=== PATIENT | male | born 1990 | race African-American/Black ===

== ENCOUNTER 2024-01-13 14:22 | Outpatient (AMB) | payer OTHER, SELFPAY ==
--- NOTE | 2024-01-13 14:43 | A.OFFPC_ITS ---
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 Will order labs. HTN: Pt has been taking his mother's hydrochlorothiazide. His blood pressure is stable on this, will prescribe this. Will have pt monitor his BP at home. Pt is morbidly obese. He is interested in weight loss. Will refer to bariatrics. Pt has a hx of severe ADAN. He has not had a sleep study in years, will refer for sleep study/titration study. 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 1. Little interest or pleasure in doing things: several days 2. Feeling down, depressed, or hopeless: several days 3. Trouble falling or staying asleep, or sleeping too much: nearly every day 4. Feeling tired or having little energy: nearly every day 5. Poor appetite or overeating: more than half the days 6. Feeling bad about yourself - or that you are a failure or have let yourself or your family down: several days 7. Trouble concentrating on things, such as reading the newspaper or watching television: not at all 8. Moving or speaking so slowly that other people could have noticed. Or the opposite - being so fidgety or restless that you have been moving around a lot more than usual: several days 9. Thoughts that you would be better off or of hurting yourself in some way: not at all Total score: 12 Depression Screening Interpretation: Positive (starting with a therapist in the near future. denies any si or hi) Depression Screening Follow-up: Existing condition and In treatment Depression Screening Done: Yes 65397 - PHQ-9 Billing: Yes Source: Developed by Drs. Primo Mcgraw, Earnestine Jose, Tarun Lloyd and colleagues, with an educational nilton from [employer].. Thrive Questionnaire Date Thrive assessed: 01/06/24 I am a: Patient What is your living situation today?: I have a steady place to live Within the past 12 months, did the food you bought not last and you didn't have the money to get more?: Never true Within the past 12 months, did you worry whether your food would run out before you got money to buy more?: Never true Do you have trouble paying for medicines?: No Do you have trouble getting transportation to medical appointments?: No Do you have trouble paying your heating and electricity bill?: Yes Do you have trouble taking care of your child, family member or friend?: No Do you have trouble with day-to-day activities such as bathing, preparing meals, shopping, managing finances, etc.?: Yes Are you currently unemployed and looking for a job?: No Are you interested in more education?: No Please select the resources that you would like help with: Housing/Assisted and Utilities Currently or been in a relationship where the following occur: No concerns reported THRIVE Score: 1 AUDIT C Alcohol Use Questionnaire (AUDIT-C) 1. How often do you have a drink containing alcohol?: Never 3. How often do you have six or more drinks on one occasion?: Never Total Score: 0 Score Reviewed/Action Taken: Yes ZAK-7 AMB Questionnaire ZAK-7 Date ZAK - 7 assessed: 01/13/24 Feeling nervous, anxious, or on edge: 2 = More than half the days Not being able to stop or control worryin = More than half the days Worrying too much about different things: 3 = Nearly every day Trouble relaxin = Nearly every day Being so restless that it is hard to sit still: 2 = More than half the days Becoming easily annoyed or irritable: 2 = More than half the days Feeling afraid as if something awful might happen: 1 = Several days Total ZAK-7 score (0-4 normal; 5-9 mild; 10-14 moderate; 15-21 severe): 15 Source: Developed by Drs. Primo Mcgraw, Earnestine Jose, Tarun Lloyd and colleagues, with an educational nilton from [employer] ZAK-7 Assessment Billing ZAK-7 Assessment Tool: ZAK-7 Assessment 65551 (starting therapy in the near future, denies any si or hi) Review of Systems Const Denies chills and Denies fever(s) Eyes Denies blurry vision ENT Denies vertigo, Denies dizziness and Denies sore throat Card Denies chest pain at rest, Denies chest pain with activity, Denies diaphoresis, Denies dyspnea and Denies dyspnea on exertion Resp Denies cough, Denies dyspnea, Denies dyspnea on exertion and Denies wheezing GI Denies abdominal pain, Denies melena, Denies hematochezia, Denies constipation, Denies diarrhea and Denies loose stools Denies hematuria Musc Denies numbness and Denies tingling Skin/Breast Denies lesions Neuro Denies vertigo, Denies dizziness, Denies numbness and Denies tingling Psych Denies anxiety, Denies depression, Denies homicidal ideation, Denies suicidal ideation and Denies other (substance abuse) Aller/Immun Denies wheezing Physical exam (Primary Care) Vital Signs: Last Vital Signs Pulse 82 01/13/24 14:47 BP 132/80 01/13/24 14:47 Pulse Ox 97 01/13/24 14:47 Oxygen Delivery Method Room Air 01/13/24 14:47 BMI result Body Mass Index 73.8 Tobacco/Smoking Status: Tobacco use Status Tobacco use date assessed 01/13/24 01/13/24 14:54 Patient Tobacco Use Status Never used Tobacco 01/13/24 14:54 e-Cigarette/Vaping Use Never Used 01/13/24 14:54 PHQ-9: PHQ-9 Score PHQ-9: Total score 12 01/13/24 14:54 Depression Screening Interpretation: Positive (starting with a therapist in the near future. denies any si or hi) Depression Screening Follow-up: Existing condition and In treatment Thrive Assessment: Date of Thrive Assessment Date Thrive assessed 01/06/24 01/13/24 14:54 Currently or been in a relationship where the following occur: No concerns reported Const General: cooperative Nutritional Appearance: obese morbidly obese Orientation/consciousness: patient oriented x3 HENMT Head: Yes normal to inspection, Yes normocephalic and Yes atraumatic Ears: TM's normal bilaterally Eyes General: appearance normal, both eyes and all related structures Alignment and Position: alignment normal and position normal Neck Neck: Yes normal visual inspection, Yes no lymphadenopathy and Yes supple Resp Effort & Inspection: normal respiratory effort Auscultation: diminished lung sounds ((due to body habitus)) Cardio Rate: regular rate Rhythm: regular rhythm Heart sounds: S1 normal heart sound present, S2 normal heart sound present and no murmurs GI Palpation (GI): Soft to palpation and nontender Auscultation: normal bowel sounds Male General Exam: Yes normal external exam Penis: normal penis Skin Other: inferior to large bilat breasts with singular scattered cystic lesions (small)/scarring along linear crease, no active cellulitis. Same noted to bilat axillary regions (HS) Neuro General: patient oriented x3, moves all extremities, no focal motor deficits and deep tendon reflexes 2+ bilaterally Romberg Test: Negative Extrem Other: dry discoloration to BLE Right lower extremity: edema Details: 1+ Left lower extremity: edema Details: 1+ Psych Appearance: grossly normal Mental Status: mental status grossly normal Speech and movement: Normal speech and movement present Affect: normal affect Attitude: cooperative Thought process: Normal thought process present Thought content: Normal thought content present Insight: Good insight present (Psych) Judgement: Good judgement present (Psych) Assessment and Plan Assessment & Plan (1) HTN (hypertension): Code(s): I10 - Essential (primary) hypertension Plan: Will send hydrochlorothiazide (already taking this) (2) Morbid obesity: Code(s): E66.01 - Morbid (severe) obesity due to excess calories Plan: Referred to bariatrics (3) Sleep apnea: Code(s): G47.30 - Sleep apnea, unspecified Plan: referring to sleep medicine (4) Hidradenitis suppurativa: Code(s): L73.2 - Hidradenitis suppurativa Plan: referring to derm Plan The patient agreed to the use of a medical van driver for this encounter. Scribed for SIN Crandall by Twyla De La Rosa medical van driver, on 01/13/2024 at 14:55 EST. Orders: Orders UA CC w/rflx Micro + Cult Today I10 - Essential (primary) hypertension Complete Blood Count Auto Diff Today I10 - Essential (primary) hypertension Comprehensive [place]. Panel Fast Today I10 - Essential (primary) hypertension TSH reflex Free T4 Today I10 - Essential (primary) hypertension Lipid Panel Today I10 - Essential (primary) hypertension Referrals Bariatric Surgery Referral E66.01 - Morbid (severe) obesity due to excess calories Sleep Medicine Referral E66.01 - Morbid (severe) obesity due to excess calories, G47.30 - Sleep apnea, unspecified Dermatology Referral L73.2 - Hidradenitis suppurativa Medications: New hydrochlorothiazide 25 mg PO DAILY 90 tabs 0RF Coding Level of Care Code New Pt Prev Care 18-39yr(85335 Diagnoses HTN (hypertension) I10 Morbid obesity E66.01 Sleep apnea G47.30 Hidradenitis suppurativa L73.2 Additional Codes ZAK-7 Assessment Billing - ZAK-7 Assessment Tool: ZAK-7 Assessment [id number] ([id number])
[2024-01-13 14:47] VITALS: BP 132/80; PULSE 82; O2SAT 97; BMI 73.8
== END 2024-01-13 15:48 | disposition home or self-care (01) ==
PROVIDERS: PCP Nurse Practitioner Family; Visit Provider Nurse Practitioner Family
DX: Z00.00 Encounter for general adult medical examination without abnormal findings (principal); E66.01 Morbid (severe) obesity due to excess calories; Z68.45 Body mass index [BMI] 70 or greater, adult; I10 Essential (primary) hypertension; G47.30 Sleep apnea, unspecified; L73.2 Hidradenitis suppurativa
CPT/HCPCS: 99385

== ENCOUNTER → 2024-01-19 07:58 | Outpatient (BNVA) | payer OTHER, SELFPAY | PROVIDERS: PCP Nurse Practitioner Family; Visit Provider Physician Assistant Surgical ==

== ENCOUNTER 2024-01-21 08:13 | Outpatient (REF) | payer OTHER, SELFPAY ==
[2024-01-21 10:25] LABS: MANUAL DIFF FLAG NO
[2024-01-21 10:35] LABS: Basophils Percent Auto 0.3 % (0-2); Eosinophils Absolute Auto 0.1 X10*3/uL (0.0-0.4); Eosinophils Percent Auto 1.1 % (0-4); Hematocrit 39.9 % (42.0-52.0); Imm Gran Abs Auto 0.03 X10*3/uL (0.00-0.03); Imm Gran Pct Auto 0.3 % (0.0-0.4); Lymphocytes Absolute Auto 2.7 X10*3/uL (1.2-4.9); Lymphocytes Percent Auto 29.5 % (20-40); Mean Corpuscular HGB Conc 32.6 g/dl (31.0-36.0); Mean Corpuscular Volume 85.8 fL (80.0-98.0); Mean Platelet Volume 9.5 fL (9.4-12.4); Monocytes Absolute Auto 0.4 X10*3/uL (0.1-1.2); Monocytes Percent Auto 4.7 % (2-11); Neutrophils Absolute Auto 5.9 x10*3/uL (2.0-8.3); Neutrophils Percent Auto 64.1 % (45-73); Platelet Count 312 X10*3/uL (160-400); Red Blood Count 4.65 X10*6/uL (4.60-5.80); Red Cell Distribution Width 14.1 % (11.0-16.0); White Blood Count 9.3 X10*3/uL (4.8-10.8)
[2024-01-21 10:41] LABS: Appearance Urine Clear; Color Urine Yellow; Glucose Urine UA Negative (Negative); Leukocyte Esterase Urine Negative (Negative); Nitrite Urine Negative (Negative); Specific Gravity - Urine 1.015 (1.005-1.025); UMIC TRIGGER UACC YES; Urine Blood Negative (Negative); Urine Ketones Negative (Negative); Urine Protein 30 (1+) mg/dL (Neg-Trace)
[2024-01-21 10:59] LABS: Bacteria Urine None Seen (None Seen); Hyaline Casts Urine 0-2 /LPF (0-2); RBC Urine 0-2 /HPF (0-2); Squamous Epithelial Cell Urine 0-2 /HPF (0-2); WBC Urine 0-5 /HPF (0-5)
[2024-01-21 11:01] LABS: Alanine Aminotransferase 16 U/L (0-40); Albumin Level 3.4 g/dL (3.5-5.0); Alkaline Phosphatase 71 U/L (39-117); Anion Gap 12 (12-20); Aspartate Amino Transferase 20 U/L (5-37); Bilirubin Total 0.5 mg/dL (0.0-1.0); Blood Urea Nitrogen 8 mg/dL (9-16); Carbon Dioxide 29 mmol/L (22-29); Chloride 101 mmol/L (96-108); Cholesterol 149 mg/dL (<200); Estimated Glomerular Filt Rate > 60; Glucose Fasting 109 mg/dL (60-99); HDL Cholesterol 21 mg/dL (>40); LDL Cholesterol Calculated 96 mg/dL (<100); Potassium 3.4 mmol/L (3.3-5.1); Sodium 139 mmol/L (135-145); Total Protein 8.1 g/dL (6.5-8.0); Triglycerides 161 mg/dL (<150)
[2024-01-21 11:20] LABS: TSH reflex Free T4 1.77 uIU/mL (0.32-4.0)
== END 2024-01-21 08:14 | disposition home or self-care (01) ==
LOC: HO.HMGCLDS 08:13
PROVIDERS: PCP Nurse Practitioner Family; Visit Provider Nurse Practitioner Family
DX: I10 Essential (primary) hypertension (principal)
CPT/HCPCS: 36415; 80053; 80061; 81001; 84443; 85025

== ENCOUNTER 2024-01-26 08:28 | Outpatient (AMB) | payer OTHER, SELFPAY ==
--- NOTE | 2024-01-26 07:13 | MHC.PC.OV ---
Intake Visit Reasons: fmla Allergies No Known Allergies Allergy (Verified 01/19/24 08:12) Medication List - Last Reconciled 01/26/24 by SIN Arndt hydrochlorothiazide 12.5 mg (1/2 x 25 mg) PO DAILY losartan 25 mg PO DAILY Tobacco use date assessed: 01/13/24 Dental Screening Dental Screen Date: 01/13/24 HPI fmla HPI Details HTN: Blood pressure is managed with hydrochlorothiazide 25mg. Pt reports that his blood pressure yesterday was 140/90. Pt does have a hx of gout. He does report swelling of his lower extremities. Will decrease hydrochlorothiazide from 25mg to 12.5mg (due to HCTZ possibly triggering gout). Will add losartan 25mg. Denies chest pain, shortness of breath, headache, dizziness, and blurred vision. Pt needs FMLA paperwork filled out due to gout and hypertension. Will fill this out. Pt will cont to monitor his BP at home and repeat labs, with a uric acid, in approx 2 weeks. Will follow up with him in approx 4 weeks. [facility] Medical History (Updated 01/26/24 @ 07:16 by VIRGINIA Arndt-MARJORIE) Gout Surgical History No pertinent past surgical history Family History (Updated 01/19/24 @ 08:18 by Elisabeth Jimenes [facility]) Father Bone cancer Mother High blood pressure Daughter No problems noted. 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 1. Little interest or pleasure in doing things: several days 2. Feeling down, depressed, or hopeless: several days 3. Trouble falling or staying asleep, or sleeping too much: nearly every day 4. Feeling tired or having little energy: nearly every day 5. Poor appetite or overeating: more than half the days 6. Feeling bad about yourself - or that you are a failure or have let yourself or your family down: several days 7. Trouble concentrating on things, such as reading the newspaper or watching television: not at all 8. Moving or speaking so slowly that other people could have noticed. Or the opposite - being so fidgety or restless that you have been moving around a lot more than usual: several days 9. Thoughts that you would be better off or of hurting yourself in some way: not at all Total score: 12 Source: Developed by Drs. Primo Mcgraw, Earnestine Jose, Tarun Lloyd and colleagues, with an educational nilton from [employer]. Thrive Questionnaire Date Thrive assessed: 01/06/24 I am a: Patient What is your living situation today?: I have a steady place to live Within the past 12 months, did the food you bought not last and you didn't have the money to get more?: Never true Within the past 12 months, did you worry whether your food would run out before you got money to buy more?: Never true Do you have trouble paying for medicines?: No Do you have trouble getting transportation to medical appointments?: No Do you have trouble paying your heating and electricity bill?: Yes Do you have trouble taking care of your child, family member or friend?: No Do you have trouble with day-to-day activities such as bathing, preparing meals, shopping, managing finances, etc.?: Yes Are you currently unemployed and looking for a job?: No Are you interested in more education?: No Please select the resources that you would like help with: Housing/Skilled Nursing and Utilities Currently or been in a relationship where the following occur: No concerns reported THRIVE Score: 1 AUDIT C Alcohol Use Questionnaire (AUDIT-C) 1. How often do you have a drink containing alcohol?: Never Total Score: 0 ZAK-7 AMB Questionnaire ZAK-7 Date ZAK - 7 assessed: 01/13/24 Feeling nervous, anxious, or on edge: 2 = More than half the days Not being able to stop or control worryin = More than half the days Worrying too much about different things: 3 = Nearly every day Trouble relaxin = Nearly every day Being so restless that it is hard to sit still: 2 = More than half the days Becoming easily annoyed or irritable: 2 = More than half the days Feeling afraid as if something awful might happen: 1 = Several days Total ZAK-7 score (0-4 normal; 5-9 mild; 10-14 moderate; 15-21 severe): 15 Source: Developed by Drs. Primo Mcgraw, Earnestine Jose, Tarun Lloyd and colleagues, with an educational nilton from [employer]. Review of Systems Const Reports as per HPI Physical exam (Primary Care) Tobacco/Smoking Status: Tobacco use Status Tobacco use date assessed 01/13/24 01/26/24 07:16 Patient Tobacco Use Status Never used Tobacco 01/26/24 07:16 e-Cigarette/Vaping Use Never Used 01/26/24 07:16 PHQ-9: PHQ-9 Score PHQ-9: Total score 12 01/26/24 07:16 Thrive Assessment: Date of Thrive Assessment Date Thrive assessed 01/06/24 01/26/24 07:16 Currently or been in a relationship where the following occur: No concerns reported Const General: cooperative Orientation/consciousness: patient oriented x3 Neuro General: patient oriented x3 Psych Appearance: grossly normal Mental Status: mental status grossly normal Speech and movement: Clear speech present Affect: normal affect Attitude: cooperative Thought process: Normal thought process present Thought content: Normal thought content present Insight: Good insight present (Psych) Judgement: Good judgement present (Psych) Telehealth Telehealth Telehealth Platform: [facility] Location of provider rendering services: practice address Location of patient: address on file Patient Identification confirmed using: Name, : Yes Telehealth method: video Patient verbally consented to treatment: Yes Patient verbally consented to billing insurance company: Yes Patient informed of any privacy concerns related to visit: Yes Minutes spent on Phone/Video with Pt.: 10 Assessment and Plan Assessment & Plan (1) Gout: Code(s): M10.9 - Gout, unspecified Plan: Filling out FMLA paperwork, uric acid ordered (2) HTN (hypertension): Code(s): I10 - Essential (primary) hypertension Plan: Decreasing hctz from 25mg to 12.5mg, adding losartan, filling out FMLA paperwork, labs ordered Plan The patient agreed to the use of a medical orderly for this encounter. Scribed for Pedrito Solano, TRUCK REPAIR SERVICE ESTIMATOR- by Twyla De La Rosa medical orderly, on 01/26/2024 at 07:15 EST. Orders: Orders Comprehensive Met. Panel Today I10 - Essential (primary) hypertension, M10.9 - Gout, unspecified Uric Acid Today M10.9 - Gout, unspecified Medications: New losartan 25 mg PO DAILY 30 tabs 2RF Changed From hydrochlorothiazide 25 mg PO DAILY 90 tabs 0RF To hydrochlorothiazide 12.5 mg (1/2 x 25 mg) PO DAILY 90 tabs 0RF Coding Level of Care Code Tele Est Pt Level 3 (92605) Diagnoses Gout M10.9 HTN (hypertension) I10
== END 2024-01-26 08:29 | disposition home or self-care (01) ==
LOC: HO.HMCC 08:28
PROVIDERS: PCP Nurse Practitioner Family; Visit Provider Nurse Practitioner Family
DX: M10.9 Gout, unspecified (principal); I10 Essential (primary) hypertension

== ENCOUNTER → 2024-01-26 08:28 | Outpatient (BNVA) | payer OTHER, SELFPAY | PROVIDERS: PCP Nurse Practitioner Family; Visit Provider Nurse Practitioner Family | DX: M10.9 Gout, unspecified (principal); I10 Essential (primary) hypertension ==

== ENCOUNTER → 2024-01-31 08:08 | Outpatient (BNVA) | payer OTHER, SELFPAY | PROVIDERS: PCP Nurse Practitioner Family; Visit Provider Surgery ==

== ENCOUNTER 2024-02-07 08:14 | Outpatient (AMB) | payer OTHER, SELFPAY ==
--- NOTE | 2024-02-07 08:07 | MHC.OFFVISWM ---
VS Expanded 02/07/24 08:18 Height 5 ft 7 in Weight 472 lb 2 oz BMI 73.9 Body Fat % 56.6 Body Fat Mass 267.2 Fat Free Mass 204.8 Visceral Fat Rating 55 Body Water % 34.7 Body Water Mass 163.8 Basal Metabolic Rate/Score 3,172 Intake Visit Reasons: [employer] BMI 73.9 Allergies No Known Allergies Allergy (Verified 02/07/24 08:07) Medication List - Last Reconciled 02/07/24 by Mike Davila MD hydrochlorothiazide 12.5 mg (1/2 x 25 mg) PO DAILY losartan 25 mg PO DAILY HPI HPI [employer] BMI 73.9: Details: Start time: 8.00am, End time: 8.35am ?I spent 30 minutes speaking with the patient on the phone plus an additional 5 minutes reviewing and updating records for a total of 35 minutes HPI Comments Details: Previous weight loss efforts: Intermittent fasting, exercise Wakes up: 8am, Sleeps: 12am Breakfast: occasionally at 9am ([employer] wrap, muffin, eggs) Lunch: 2pm (chicken and rice) Dinner: 6-7pm (chicken and rice) Snacks: 11am (chips, crackers), 3-4pm (chips) Exercise: none Fluids: Coffee: none, tea: none, soda: 3/wk (Pepsi, Gingerale), juice: several glasses of juice, ETOH: none PFSH Medical History (Updated 02/07/24 @ 08:12 by Mike Davila MD) Anxiety Depression Gout Surgical History No pertinent past surgical history Family History (Updated 01/19/24 @ 08:18 by Elisabeth Jimenes CMA) Father Bone cancer Mother High blood pressure Daughter No problems noted. 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[employer], [place] Cognitive needs: No Hearing needs: No Vision needs: No Telehealth Telehealth Telehealth Platform: Telephone Location of provider rendering services: practice address Location of patient: address on file Patient Identification confirmed using: Name, : Yes Telehealth method: voice only Patient verbally consented to treatment: Yes Patient verbally consented to billing insurance company: Yes Patient informed of any privacy concerns related to visit: Yes Minutes spent on Phone/Video with Pt.: 35 Assessment & Plan Assessment & Plan (1) Morbid obesity: Code(s): E66.01 - Morbid (severe) obesity due to excess calories Category: Medical Plan: 1.? Plan for lap sleeve gastrectomy. If diaphragmatic or ventral hernias are present at time of surgery, these will be repaired laparoscopically as well. Risks and complications include possible conversion to an open procedure, anastomotic leak, bleeding requiring transfusion, small bowel obstruction, , DVT and pulmonary embolism, cardiac, or pulmonary complications, as assistant terminal manager complications such as anastomotic ulcer, insufficient weight loss and vitamin deficiencies. I emphasized the importance of close follow-up, adherence to instructions and good communication. 2. You will receive a link of our software rhiannon to generate an individualized nutritional and exercise plan specific for you. Please send me a screenshot of the plans you will generate Meal to include lean meat (beef, fish, pork, turkey, chicken), or st helenian yogurt, or egg whites, or beans with a salad with olive oil and fruits (berries, pears, apples, kiwi). Avoid salt, breads, potatoes, rice, pasta, desserts. ?3. If you choose shakes, each shake would be drunk slowly, like coffee in a period of 2 hours. ?4. If you choose bars, cut each bar in 4 pieces and eat each piece in 30min ?to make each bar last 2 hours. ?5. I emphasized the importance of measuring accurately the food portion and measure it when serving the food in plate ?6. The meal portions include a specific number of forks of meat and salad. You always eat the meat portion but you can replace up to half of salad/vegetables portion with rice, potatoes or pasta, or a fruit ?if you like. The less you do it the better weight loss will be. ?7. One full-size fork is what it can be scooped on the fork without falling aside and not what can be bit with the fork. Use regular forks like those you find in a typical restaurant. ?8.? Please send me weight measurements as soon as possible and then once a week. Always include your diet and exercise plan. 9. The best choice would be to purchase a stationary bike, elliptical or treadmill at home that can track calories. Let me know if you do so I can give you an exercise plan. ?10.?Goal is to lose at least 1.5-2lbs per week ?12. Goal to lose 10% of your weight before surgery, which is about 47lbs. Ultimate weight goal: 425lbs before surgery 13. Please follow the diet plan exactly without any change. If you don't like something about the plan or you feel hungry you need to communicate with me so I can help you revise the plan. You should not change the plan yourself. 14. To be scheduled for EGD to assess the stomach's anatomy. The possibility of biopsies was discussed. Patient needs to avoid use of NSAIDs and aspirin for 1 week prior to EGD. Risks of perforation and bleeding was discussed with the patient. This will be an outpatient procedure with IV sedation. Orders: Orders Insulin Today E66.01 - Morbid (severe) obesity due to excess calories, G47.30 - Sleep apnea, unspecified, I10 - Essential (primary) hypertension, M10.9 - Gout, unspecified Hemoglobin A1c Today E66.01 - Morbid (severe) obesity due to excess calories, G47.30 - Sleep apnea, unspecified, I10 - Essential (primary) hypertension, M10.9 - Gout, unspecified H Pylori Breath Test Today E66.01 - Morbid (severe) obesity due to excess calories, G47.30 - Sleep apnea, unspecified, I10 - Essential (primary) hypertension, M10.9 - Gout, unspecified Complete Blood Count Auto Diff Today E66.01 - Morbid (severe) obesity due to excess calories, G47.30 - Sleep apnea, unspecified, I10 - Essential (primary) hypertension, M10.9 - Gout, unspecified Lipid Panel Today E66.01 - Morbid (severe) obesity due to excess calories, G47.30 - Sleep apnea, unspecified, I10 - Essential (primary) hypertension, M10.9 - Gout, unspecified Comprehensive Met. Panel Today E66.01 - Morbid (severe) obesity due to excess calories, G47.30 - Sleep apnea, unspecified, I10 - Essential (primary) hypertension, M10.9 - Gout, unspecified Zinc Today E66.01 - Morbid (severe) obesity due to excess calories, G47.30 - Sleep apnea, unspecified, I10 - Essential (primary) hypertension, M10.9 - Gout, unspecified C Reactive Protein Today E66.01 - Morbid (severe) obesity due to excess calories, G47.30 - Sleep apnea, unspecified, I10 - Essential (primary) hypertension, M10.9 - Gout, unspecified Vitamin B1 Today E66.01 - Morbid (severe) obesity due to excess calories, G47.30 - Sleep apnea, unspecified, I10 - Essential (primary) hypertension, M10.9 - Gout, unspecified TSH reflex Free T4 Today E66.01 - Morbid (severe) obesity due to excess calories, G47.30 - Sleep apnea, unspecified, I10 - Essential (primary) hypertension, M10.9 - Gout, unspecified XR chest 2V Today E66.01 - Morbid (severe) obesity due to excess calories, G47.30 - Sleep apnea, unspecified, I10 - Essential (primary) hypertension, M10.9 - Gout, unspecified IRON PROFILE Today E66.01 - Morbid (severe) obesity due to excess calories, G47.30 - Sleep apnea, unspecified, I10 - Essential (primary) hypertension, M10.9 - Gout, unspecified Vitamin B12 and Folate Today E66.01 - Morbid (severe) obesity due to excess calories, G47.30 - Sleep apnea, unspecified, I10 - Essential (primary) hypertension, M10.9 - Gout, unspecified Vitamin A Today E66.01 - Morbid (severe) obesity due to excess calories, G47.30 - Sleep apnea, unspecified, I10 - Essential (primary) hypertension, M10.9 - Gout, unspecified Ferritin Today E66.01 - Morbid (severe) obesity due to excess calories, G47.30 - Sleep apnea, unspecified, I10 - Essential (primary) hypertension, M10.9 - Gout, unspecified Vitamin D 25-OH Total Today E66.01 - Morbid (severe) obesity due to excess calories, G47.30 - Sleep apnea, unspecified, I10 - Essential (primary) hypertension, M10.9 - Gout, unspecified US abdomen comp w elastography Today E66.01 - Morbid (severe) obesity due to excess calories, G47.30 - Sleep apnea, unspecified, I10 - Essential (primary) hypertension, M10.9 - Gout, unspecified ECG 12 lead EKG Today E66.01 - Morbid (severe) obesity due to excess calories, G47.30 - Sleep apnea, unspecified, I10 - Essential (primary) hypertension, M10.9 - Gout, unspecified FL upper GI w air Today E66.01 - Morbid (severe) obesity due to excess calories, G47.30 - Sleep apnea, unspecified, I10 - Essential (primary) hypertension, M10.9 - Gout, unspecified Referrals Behavioral Health Referral E66.01 - Morbid (severe) obesity due to excess calories, G47.30 - Sleep apnea, unspecified, I10 - Essential (primary) hypertension, M10.9 - Gout, unspecified Nutrition/Dietitian Referral E66.01 - Morbid (severe) obesity due to excess calories, G47.30 - Sleep apnea, unspecified, I10 - Essential (primary) hypertension, M10.9 - Gout, unspecified
[2024-02-07 08:18] VITALS: BMI 73.9
== END 2024-02-07 08:36 | disposition home or self-care (01) ==
LOC: HO.HBS 08:14
PROVIDERS: PCP Nurse Practitioner Family; Visit Provider Surgery
DX: E66.01 Morbid (severe) obesity due to excess calories (principal); Z68.45 Body mass index [BMI] 70 or greater, adult
CPT/HCPCS: 99203

== ENCOUNTER → 2024-02-07 08:14 | Outpatient (BNVA) | payer OTHER, SELFPAY | PROVIDERS: PCP Nurse Practitioner Family; Visit Provider Surgery ==

== ENCOUNTER 2024-02-08 13:08 | Outpatient (REF) | payer OTHER, SELFPAY ==
--- NOTE | ~2024-02-08 | XR_ITS ---
EXAMINATION: XR CHEST 2 VIEWS CLINICAL INFORMATION: E66.01 Morbid (severe) obesity due to excess calories. COMPARISON: None available. TECHNIQUE: 2 views of the chest were obtained. FINDINGS: No significant abnormality is noted involving the heart, lungs, mediastinum, bony thorax or soft tissues. XR/XR chest 2V IMPRESSION: Unremarkable examination. Electronically signed by: Velvet Corona MD 04/20/2024 10:53 AM [facility]
[2024-02-08 16:27] LABS: Appearance Urine Clear; Color Urine Dark Yellow; Glucose Urine UA Negative (Negative); Leukocyte Esterase Urine Negative (Negative); Nitrite Urine Negative (Negative); Specific Gravity - Urine 1.025 (1.005-1.025); UMIC TRIGGER UACC YES; Urine Blood Negative (Negative); Urine Ketones Negative (Negative); Urine Protein 30 (1+) mg/dL (Neg-Trace)
[2024-02-08 16:47] LABS: Basophils Percent Auto 0.2 % (0-2); Eosinophils Absolute Auto 0.2 X10*3/uL (0.0-0.4); Eosinophils Percent Auto 2.4 % (0-4); Hematocrit 39.6 % (42.0-52.0); Hemoglobin 13.3 g/dl (14.0-18.0); Imm Gran Abs Auto 0.02 X10*3/uL (0.00-0.03); Imm Gran Pct Auto 0.2 % (0.0-0.4); Lymphocytes Absolute Auto 2.7 X10*3/uL (1.2-4.9); Lymphocytes Percent Auto 31.3 % (20-40); MANUAL DIFF FLAG SCAN; Mean Corpuscular HGB Conc 33.6 g/dl (31.0-36.0); Mean Corpuscular Hemoglobin 28.7 pg (27.0-33.0); Mean Corpuscular Volume 85.3 fL (80.0-98.0); Monocytes Absolute Auto 0.4 X10*3/uL (0.1-1.2); Monocytes Percent Auto 4.8 % (2-11); Neutrophils Absolute Auto 5.3 x10*3/uL (2.0-8.3); Neutrophils Percent Auto 61.1 % (45-73); PLT CLUMP 1; Red Blood Count 4.64 X10*6/uL (4.60-5.80); Red Cell Distribution Width 14.1 % (11.0-16.0); SCAN SMEAR FLAG 1
[2024-02-08 16:49] LABS: Estimated Average Glucose 123 mg/dL; Hemoglobin A1C 134.1508 umol/L; Hemoglobin A1c % 5.9 % (<6.0); Total Hemoglobin (HGBA1C) 3294.5272 umol/L
[2024-02-08 16:50] LABS: Bacteria Urine None Seen (None Seen); Hyaline Casts Urine 0-2 /LPF (0-2); RBC Urine 0-2 /HPF (0-2); Squamous Epithelial Cell Urine 0-2 /HPF (0-2); WBC Urine 0-5 /HPF (0-5)
[2024-02-08 16:52] LABS: Alanine Aminotransferase 19 U/L (0-40); Albumin Level 3.5 g/dL (3.5-5.0); Alkaline Phosphatase 77 U/L (39-117); Anion Gap 12 (12-20); Aspartate Amino Transferase 23 U/L (5-37); Bilirubin Total 0.5 mg/dL (0.0-1.0); Blood Urea Nitrogen 9 mg/dL (9-16); C Reactive Protein 3.97 mg/dL (< or = 0.50); Calcium 9.1 mg/dL (8.4-10.2); Carbon Dioxide 26 mmol/L (22-29); Chloride 105 mmol/L (96-108); Cholesterol 148 mg/dL (<200); Estimated Glomerular Filt Rate > 60; Glucose Random 95 mg/dL (60-115); HDL Cholesterol 22 mg/dL (>40); Iron 69 mcg/dL (45-160); LDL Cholesterol Calculated 96 mg/dL (<100); Percent Iron Saturation 30 % (15-50); Potassium 3.9 mmol/L (3.3-5.1); Sodium 139 mmol/L (135-145); Total Iron Binding Capacity 231 mcg/dL (228-428); Total Protein 8.4 g/dL (6.5-8.0); Triglycerides 153 mg/dL (<150); Unsaturated Iron Binding 162 ug/dL; Uric Acid 11.4 mg/dL (3.4-7.0)
[2024-02-08 16:59] LABS: Alanine Aminotransferase 19 U/L (0-40); Albumin Level 3.4 g/dL (3.5-5.0); Alkaline Phosphatase 79 U/L (39-117); Anion Gap 12 (12-20); Aspartate Amino Transferase 25 U/L (5-37); Bilirubin Total 0.5 mg/dL (0.0-1.0); Blood Urea Nitrogen 9 mg/dL (9-16); Calcium 9.1 mg/dL (8.4-10.2); Carbon Dioxide 26 mmol/L (22-29); Chloride 106 mmol/L (96-108); Estimated Glomerular Filt Rate > 60; Glucose Random 95 mg/dL (60-115); Potassium 3.9 mmol/L (3.3-5.1); Sodium 140 mmol/L (135-145); Total Protein 8.3 g/dL (6.5-8.0)
[2024-02-08 17:12] LABS: Mean Platelet Volume 9.8 fL (9.4-12.4); Platelet Count 306 X10*3/uL (160-400); White Blood Count 8.7 X10*3/uL (4.8-10.8)
[2024-02-08 17:13] LABS: SLIDE REVIEW VERIFIED
[2024-02-08 17:23] LABS: Ferritin 153 ng/mL (20-250); TSH reflex Free T4 1.56 uIU/mL (0.32-4.0); Vitamin D 25-OH Total 4.6 ng/mL (>30)
[2024-02-08 17:32] LABS: Folate 6.7 ng/mL (> or = 4.0); Vitamin B12 354 pg/mL (200-900)
[2024-02-08 17:40] LABS: Insulin 19 uU/mL (2-29)
[2024-02-11 22:08] LABS: Zinc 48 mcg/dL (60-130)
[2024-02-11 23:28] LABS: Vitamin A 37 mcg/dL (38-98)
[2024-02-14 06:33] LABS: Vitamin B1 9 nmol/L (8-30)
== END 2024-02-08 13:09 | disposition home or self-care (01) ==
LOC: HO.HMGCX 13:08
PROVIDERS: PCP Nurse Practitioner Family; Referring Provider Surgery; Visit Provider Nurse Practitioner Family
DX: E66.01 Morbid (severe) obesity due to excess calories (principal); I10 Essential (primary) hypertension; G47.30 Sleep apnea, unspecified; M10.9 Gout, unspecified
CPT/HCPCS: 36415; 71046; 80053; 80061; 81001; 82306; 82607; 82728; 82746; 83036; 83525; 83540; 84425; 84443; 84550; 84590; 84630; 85025; 86140

== ENCOUNTER 2024-02-23 07:48 | Outpatient (AMB) | payer OTHER, SELFPAY ==
--- NOTE | 2024-02-23 07:20 | A.OFFPC_ITS ---
Intake Visit Reasons: 4 week follow up Allergies No Known Allergies Allergy (Verified 02/07/24 08:07) Medication List - Last Reconciled 02/23/24 by SIN Arndt allopurinol 200 mg (2 x 100 mg) PO DAILY 90 days cholecalciferol (vitamin D3) 50 mcg PO DAILY hydrochlorothiazide 12.5 mg (1/2 x 25 mg) PO DAILY losartan 25 mg PO DAILY Tobacco use date assessed: 01/13/24 Dental Screening Dental Screen Date: 01/13/24 HPI 4 week follow up HPI Details HTN: Pt reports that his blood pressure has been in the 130s/80s. BP is managed with hydrochlorothiazide 12.5mg and losartan 25mg. Denies chest pain, shortness of breath, headache, dizziness, and blurred vision. Gout: Pt reports some ongoing pain and swelling of his feet. Uric acid was elevated. Will increase allopurinol from 100mg to 200mg. Pt's vitamin D was noted to be low. Will send vitamin D tabs. Pt is requesting STD testing, though denies any symptoms. Will order. Pt is working with bariatrics for weight loss. [facility] Medical History (Updated 02/23/24 @ 07:30 by SIN Arndt) Anxiety Depression Gout Surgical History No pertinent past surgical history Family History (Updated 01/19/24 @ 08:18 by Elisabeth Jimenes [facility]) Father Bone cancer Mother High blood pressure Daughter No problems noted. 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 Primo Mcgraw, Earnestine Jose, Tarun Lloyd and colleagues, with an educational nilton from [employer]. Review of Systems Const Reports as per HPI Physical exam (Primary Care) Tobacco/Smoking Status: Tobacco use Status Tobacco use date assessed 01/13/24 02/23/24 07:21 Patient Tobacco Use Status Never used Tobacco 02/23/24 07:21 e-Cigarette/Vaping Use Never Used 02/23/24 07:21 Thrive Assessment: Date of Thrive Assessment Date Thrive assessed 01/06/24 02/23/24 07:21 Const General: cooperative Orientation/consciousness: patient oriented x3 Neuro General: patient oriented x3 Psych Appearance: grossly normal Mental Status: mental status grossly normal Speech and movement: Clear speech present Affect: normal affect Attitude: cooperative Thought process: Normal thought process present Thought content: Normal thought content present Insight: Good insight present (Psych) Judgement: Good judgement present (Psych) Telehealth Telehealth Telehealth Platform: [employer] Location of provider rendering services: practice address Location of patient: address on file Patient Identification confirmed using: Name, : Yes Telehealth method: video Patient verbally consented to treatment: Yes Patient verbally consented to billing insurance company: Yes Patient informed of any privacy concerns related to visit: Yes Minutes spent on Phone/Video with Pt.: 10 Coding Level of Care Code Tele Est Pt Level 3 (34161) Diagnoses HTN (hypertension) I10 Gout M10.9 Vitamin D deficiency E55.9 Screening for STD (sexually transmitted disease) Z11.3 Assessment & Plan Assessment & Plan (1) HTN (hypertension): Code(s): I10 - Essential (primary) hypertension Category: Medical Plan: cont meds (2) Gout: Code(s): M10.9 - Gout, unspecified Category: Medical Plan: increased allopurinol, repeat uric acid (3) Vitamin D deficiency: Code(s): E55.9 - Vitamin D deficiency, unspecified Category: Medical Plan: vitamin d tabs sent to start (4) Screening for STD (sexually transmitted disease): Code(s): Z11.3 - Encounter for screening for infections with a predominantly sexual mode of transmission Category: Medical Plan: testing orders entered Plan The patient agreed to the use of a medical and health services manager for this encounter. Scribed for SIN Crandall by jeanette Nj scribe, on 02/23/2024 at 07:20 EST. Orders: Orders Complete Blood Count Auto Diff Today I10 - Essential (primary) hypertension, M10.9 - Gout, unspecified Comprehensive [place]. Panel Fast Today I10 - Essential (primary) hypertension, M10.9 - Gout, unspecified UA CC w/rflx Micro + Cult Today I10 - Essential (primary) hypertension, M10.9 - Gout, unspecified Lipid Panel Today I10 - Essential (primary) hypertension, M10.9 - Gout, unspecified Uric Acid Today I10 - Essential (primary) hypertension, M10.9 - Gout, unspecified CT NG by PCR Today Z11.3 - Encounter for screening for infections with a predominantly sexual mode of transmission Hepatitis A,B,C Profile Today Z11.3 - Encounter for screening for infections with a predominantly sexual mode of transmission TSH reflex Free T4 Today I10 - Essential (primary) hypertension, M10.9 - Gout, unspecified Vitamin D 25-OH Total Today E55.9 - Vitamin D deficiency, unspecified Herpes Simplex Virus Ab IgG Today Z11.3 - Encounter for screening for in fections with a predominantly sexual mode of transmission HIV Ab/Ag Today Z11.3 - Encounter for screening for infections with a predominantly sexual mode of transmission Syphilis Screen Today Z11.3 - Encounter for screening for infections with a predominantly sexual mode of transmission Medications: New cholecalciferol (vitamin D3) 50 mcg PO DAILY 90 caps 0RF Changed From allopurinol 100 mg PO DAILY 90 days 90 tabs 0RF To allopurinol 200 mg (2 x 100 mg) PO DAILY 90 days 180 tabs 0RF Refilled hydrochlorothiazide 12.5 mg (1/2 x 25 mg) PO DAILY 90 tabs 0RF losartan 25 mg PO DAILY 90 tabs 2RF
== END 2024-02-23 14:20 | disposition home or self-care (01) ==
LOC: HO.HMCC 07:48
PROVIDERS: PCP Nurse Practitioner Family; Visit Provider Nurse Practitioner Family
DX: I10 Essential (primary) hypertension (principal); M10.9 Gout, unspecified; E55.9 Vitamin D deficiency, unspecified; Z11.3 Encounter for screening for infections with a predominantly sexual mode of transmission

== ENCOUNTER → 2024-02-23 07:48 | Outpatient (BNVA) | payer OTHER, SELFPAY | PROVIDERS: PCP Nurse Practitioner Family; Visit Provider Nurse Practitioner Family | DX: I10 Essential (primary) hypertension (principal); M10.9 Gout, unspecified; E55.9 Vitamin D deficiency, unspecified; Z11.3 Encounter for screening for infections with a predominantly sexual mode of transmission ==

== ENCOUNTER 2024-03-01 15:11 | Outpatient (AMB) | payer OTHER, SELFPAY ==
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
== END 2024-03-01 16:00 | disposition home or self-care (01) ==
LOC: HO.HBST 15:11
PROVIDERS: PCP Nurse Practitioner Family; Visit Provider Counselor Mental Health
DX: F43.9 Reaction to severe stress, unspecified (principal)
CPT/HCPCS: 90837

== ENCOUNTER → 2024-03-01 15:11 | Outpatient (BNVA) | payer OTHER, SELFPAY | PROVIDERS: PCP Nurse Practitioner Family; Visit Provider Counselor Mental Health ==

== ENCOUNTER 2024-03-09 06:25 | Day surgery (SDC) | payer OTHER, SELFPAY ==
[2024-03-06 13:27] VITALS: BMI 73.9
--- NOTE | 2024-03-07 13:06 | HO.ANESPROP2 ---
Documented by User: Anai Dela Cruz NP 03/07/24 13:08 HPI - Anesthesia Eval Consult details Narrative: 34yo M for Upper Endoscopy BMI 73 PMFSH Active Problems Active Problems: All Active Problems Screening for STD (sexually transmitted disease) (Acute) Vitamin D deficiency (Acute) Anxiety (Acute) Depression (Acute) Gout (Acute) Anxiety and depression (Acute) Hidradenitis suppurativa (Acute) Sleep apnea (Acute) Morbid obesity (Acute) HTN (hypertension) (Acute) Past Medical History Medical History Anxiety Depression Gout Family History Family History Father Bone cancer Mother High blood pressure Daughter No problems noted. 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 [employer] Cognitive needs: No Hearing needs: No Vision needs: No Meds Allergies Allergy/AdvReac Type Severity Reaction Status Date / Time No Known Allergies Allergy Verified 03/09/24 06:51 Exam Height,Weight and Vital Signs: Height 5 ft 7 in Weight 214.096 kg Pertinent Lab Results Pertinent Lab Results: Laboratory Tests 02/08/24 13:30 WBC 8.7 Hgb 13.3 L Hct 39.6 L Plt Count 306 Sodium 140 Potassium 3.9 Chloride 106 Carbon Dioxide 26 BUN 9 Creatinine 0.76 Narrative Narrative: EKG 01/2024 NSR @ 96 Min volt criteria for LVH Assessment and Plan Assessment Anesthesia Assessment: Chart Reviewed Documented by User: Greta Restrepo MD 03/09/24 07:44 HPI - Anesthesia Eval Consult details Narrative: 34yo M for Upper Endoscopy BMI 74 PMFSH Active Problems Active Problems: All Active Problems Screening for STD (sexually transmitted disease) (Acute) Vitamin D deficiency (Acute) Anxiety (Acute) Depression (Acute) Gout (Acute) Anxiety and depression (Acute) Hidradenitis suppurativa (Acute) Sleep apnea (Acute) Morbid obesity (Acute) HTN (hypertension) (Acute) ADAN. Used CPAP in the past but machine broken. Awaiting new sleep study Past Medical History Medical History Anxiety Depression Gout Family History Family History Father Bone cancer Mother High blood pressure Daughter No problems noted. 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 CTAB Assessment and Plan Assessment Anesthesia Assessment: Anesthesia Plan Discussed and Chart Reviewed Final Anesthetic Review Family History of Problems with Anesthesia: No History of Problems with Anesthesia: No NPO: Yes ASA Class: III Final Preanesthetic Review: No Changes in Pt Med Stat, Meds/Allgs Chart Reviewed, Consent Obtained/Reviewed and Anes Risks/Benef Reviewed Patient Risk: Intermediate Procedure Risk: Low Assessment/Block/Sedation in SS: Assess/Block/Sedation-SS Anesthetic Plan Anesthetic Plan: GA Disposition: Standard PACU
[2024-03-09] VITALS (8 sets, daily range): BP systolic 115–149; BP diastolic 54–99; PULSE 91–104; RESP 18–28; TEMP 36.8–37.4; O2SAT 94–98
[2024-03-09] MEDS: Lactated Ringers 1,000 ML 80 ML IVCONT (07:15)
--- NOTE | 2024-03-09 07:33 | MHC.SHP ---
Pre-Procedural Eval Section A - 24 Hr Update-Section A only Date of Service: 03/09/24 The patient is an INPATIENT: No The patient has been examined within 24 hours of the surgical procedure. The History & Physical has been completed within 30 days and I have reviewed it.: Yes Section B - Complete if H&P > 30 days Chief Complaint: Morbid (severe) obesity due to excess calories Relevant Family History (Specify if Yes): No Relevant Social History: None Present Medications: None Medical History: No relevant PMH History of Previous Operations: No relevant previous surgery Allergies: Allergies Allergy/AdvReac Type Severity Reaction Status Date / Time No Known Allergies Allergy Verified 03/09/24 06:51 Review of Systems Sugical H&P ROS: Negative: Constitution, Cardiovascular, Respiratory, Neurological, Psychiatric, Hem-Onc, Allergic/Immunologic, Gastrointestinal, Genitourinary, Musculoskeletal, Integumentary, Endocrine and Eyes/Ears/Nose/Throat Exam Surgical H&P Exam: Normal: HEENT, Normal: Heart, Normal: Lungs, Normal: Extremities, Normal: Abdomen, Normal: Skin and Normal: Neurological Plan Diagnosis/Plan: Unchanged (EGD to assess the stomach's anatomy. Risks of bleeding and perforation were discussed with the patient and he is in agreement with the plan.) I have reviewed the history and physical and performed a pertinent physical examination on my patient. No changes have occurred unless specified. Time Spent With Patient Time: Total time managing care of this patient today ____ minutes.
--- NOTE | 2024-03-09 08:00 | P.BOP_ITS ---
Brief Operative Note Date of Service: 03/09/24 Pre-op diagnosis: Morbid obesity Post-op diagnosis: same Procedure: PROCEDURE DATE: 03/09/2024 PREOPERATIVE DIAGNOSIS: GERD POSTOPERATIVE DIAGNOSIS: ?Same as above. 1) normal PROCEDURE: Xfdhibrz-ovgrkm-eahzgzxsozks with biopsies Surgeon: ?Aiden Davila M.D.. Ph.D. Computer Operator: None ? Anesthesia: IV sedation Estimated blood loss: ?Minimal FINDINGS AND PROCEDURE: ? OPERATIVE INDICATIONS: ?The patient is a 34 year old male known to me who is interested in bariatric surgery. Based on this information I recommended an upper endoscopy to evaluate the stomach's anatomy. Risks and complications of the surgery were discussed with the patient in advance particularly the possibility of perforation or bleeding that may require surgical intervention. The patient understood the risks and was in agreement with the plan. ? PROCEDURE: After informed consent was obtained by the patient, the patient was ?transferred to the Operating Room and was placed in the supine position.?Due to his high BMI endotracheal intubation and general anesthesia was used. After successful induction of anesthesia, a mouth block was inserted and the patient was placed in the left lateral decubitus position. An upper endoscopy was performed next, the oropharynx and esophagus appeared within the normal limits. There was no hiatal hernia. The z-line was smooth. Two biopsies were obtained from the distal esophagus 2-3 cm proximal to the GE junction and two additional biopsies from the GE junction. The stomach was entered and it appeared to be of normal size. There was no gastritis at the gastric fundus or antrum. There was no stricture or ulcer. A biopsy was obtained from the gastric fundus and antrum. No significant bleeding was noted from any of the biopsy sites. Retroflexion of the scope confirmed the presence of a normal GE junction. The scope was then advanced into the duodenum which appeared to be normal as well. At that point the duodenum ?and the stomach were decompressed and the scope was withdrawn from the patient's mouth. The patient extubated and was transferred in stable condition to the Recovery Room for further care. I was present and performed all steps of the procedure. There were no residents to assist with this case. Aiden Davila M.D., Ph.D. Surgeon: Mike Davila MD Was an Computer Operator used for this Procedure?: No Estimated blood loss (mL): 0 IV fluids (mL): 400 Urine output (mL): 0 (No [place] to record output) Pathology: other (1) antrum x1, 2) fundus x1, 3) GE junction x2, 4) distal esophagus x2) Condition: stable Disposition: PACU
== END 2024-03-09 10:48 | disposition home or self-care (01) ==
PROVIDERS: PCP Nurse Practitioner Family; Visit Provider Surgery
PROC: 0DJ08ZZ Inspection of Upper Intestinal Tract, Via Natural or Artificial Opening Endoscopic (ICD-10-PCS; CPT 43235; principal; 2024-03-09 07:30)
DX: K21.9 Gastro-esophageal reflux disease without esophagitis (principal); E66.01 Morbid (severe) obesity due to excess calories; Z68.45 Body mass index [BMI] 70 or greater, adult; I10 Essential (primary) hypertension; M10.9 Gout, unspecified; F32.A Depression, unspecified; F41.9 Anxiety disorder, unspecified; G47.30 Sleep apnea, unspecified; Z79.899 Other long term (current) drug therapy
CPT/HCPCS: 43239; 88305; 88312; 88313; 88342; J0330; J1100; J1596; J2405; J2704; J3010

== ENCOUNTER → 2024-03-09 06:25 | Outpatient (BNV) | payer OTHER, SELFPAY | PROVIDERS: PCP Nurse Practitioner Family; Visit Provider Surgery | DX: K21.9 Gastro-esophageal reflux disease without esophagitis (principal) | CPT/HCPCS: 43239 ==

== ENCOUNTER → 2024-03-20 14:29 | Outpatient (AMB) | payer OTHER, SELFPAY ==
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
== END ==
LOC: HO.HBST 14:29
PROVIDERS: PCP Nurse Practitioner Family; Visit Provider Counselor Mental Health
DX: F43.9 Reaction to severe stress, unspecified (principal)
CPT/HCPCS: 90837

== ENCOUNTER → 2024-04-20 12:22 | Outpatient (AMB) | payer OTHER, SELFPAY ==
--- NOTE | 2024-04-20 12:10 | A.OFFWM_ITS ---
Intake Intake Visit Reasons: VIDEO BH F/U Allergies No Known Allergies Allergy (Verified 03/09/24 06:51) [facility] Medical History Anxiety Depression Gout Surgical History No pertinent past surgical history Family History Father Bone cancer Mother High blood pressure Daughter No problems noted. 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 Not following meal/exercise plan but have not been drinking DD refreshers or fast food. Mainly doing home made foods, and his mother is supporting him with healthier choices and portion control. Walking more. Objective: PT presents for a follow up visit via Telehealth. Worked in behavioral modification and habit building. Provided psychoeducation about his eating patters/cycles and body responses/consequences and long-term challenges. Proposed behavioral activation plan. Processed sources of stress around finances and supported client with problem solving exercise. Constructive feedback provided. Assessment/Response: * Mental status: Open, oriented x3, engaged and alert. Stressed. Functioning issues due to foot issues. * Risk reported/identified: None PT cooperative and responded well to interventions. Plan: * homework: get back into [employer] and modify the plan, pick shakes/bars advised by provider and start meal prepping. PRovided list of products EBT covered. Also advised to park at his mom to use that walk as exercise as its about 1 mile. PT will contact dr Curiel to explore if doing a slow meal plan is possible to start adjusting his eating behavior and getting use to it. * Use a food log. * Implement budgeting techniques provided. Assessment & Plan Assessment & Plan (1) Trauma and stressor-related disorder: Code(s): F43.9 - Reaction to severe stress, unspecified Plan PT is not cleared. He will continue following up with this provider. Next rhiannon after the holidays per client's request. Telehealth Telehealth Telehealth Platform: [employer] Location of provider rendering services: other Location of patient: address on file Patient Identification confirmed using: Name, : Yes Telehealth method: video Patient verbally consented to treatment: Yes Patient verbally consented to billing insurance company: Yes Patient informed of any privacy concerns related to visit: Yes Minutes spent on Phone/Video with Pt.: 60 Coding Level of Care Code Established Pt Tele Psytx >53 mins (17509) Patient Type Established Diagnoses Trauma and stressor-related disorder F43.9 Time Spent (min) 60
== END ==
LOC: HO.HBST 12:22
PROVIDERS: PCP Nurse Practitioner Family; Visit Provider Counselor Mental Health
DX: F43.9 Reaction to severe stress, unspecified (principal)
CPT/HCPCS: 90837

== ENCOUNTER 2024-04-26 08:40 | Outpatient (REF) | payer OTHER, SELFPAY ==
--- NOTE | ~2024-04-26 | FL_ITS ---
EXAMINATION: XR FLUOROSCOPY UPPER GI WITH AIR CLINICAL INFORMATION: Upper GI evaluation prior to bariatric surgery COMPARISON: None TECHNIQUE: Fluoroscopic air contrast upper GI examination was performed utilizing standard techniques with thin and thick barium and effervescent granules. Numerous spot images were obtained. FINDINGS: Dual and single contrast images of the esophagus demonstrate normal caliber, contour. Evaluation of the esophageal mucosa is limited due to patient's body habitus, however, no obvious stricture, mass, or ulcerations are identified. Esophageal peristalsis was normal. A very small type I hiatal hernia is present. No significant gastroesophageal reflux was seen during the course of the examination and on reflux views. Dual contrast and single contrast images of the stomach demonstrated a normal contour evaluation of the gastric mucosa is limited due to patient's body habitus. No obvious masses are present. Contrast freely passed into the gastric antrum and duodenal bulb without delay. Single and air-contrast images of the duodenal bulb demonstrate no abnormality. The duodenal sweep has a normal appearance, course, and mucosal fold appearance. The imaged proximal jejunum has a normal fold pattern and caliber. FLUOROSCOPY TIME: 3 minutes 5 seconds Number of Spot Images: 6 Number of Cine: 10 DOSE AREA PRODUCT: 2045 uGy-m2 (microgray-meter squared) FL/FL upper GI w air IMPRESSION: 1. Limited examination due to the patient's body habitus. A very small type I hiatal hernia is present. This procedure was performed by Otis Stockton PA-C, and supervised by Dr. Acevedo Electronically signed by: Rajesh Acevedo MD 04/26/2024 04:21 PM [facility]
== END 2024-04-26 08:41 | disposition home or self-care (01) ==
LOC: HO.XRAY 08:40
PROVIDERS: PCP Nurse Practitioner Family; Visit Provider Surgery
DX: E66.01 Morbid (severe) obesity due to excess calories (principal); I10 Essential (primary) hypertension; G47.30 Sleep apnea, unspecified; M10.9 Gout, unspecified
CPT/HCPCS: 74246

== ENCOUNTER → 2024-04-26 08:42 | Outpatient (BNV) | payer OTHER, SELFPAY | PROVIDERS: PCP Nurse Practitioner Family; Visit Provider Physician Assistant Surgical | DX: K44.9 Diaphragmatic hernia without obstruction or gangrene (principal) | CPT/HCPCS: 74246 ==

== ENCOUNTER 2024-06-20 13:16 | Outpatient (AMB) | payer OTHER, SELFPAY ==
[2024-06-20 14:34] VITALS: BP 134/82; PULSE 83; O2SAT 98; BMI 78.3
--- NOTE | 2024-06-20 14:34 | MHC.OFFWIV ---
Intake Vital Signs 06/20/24 14:34 Height 5 ft 6 in Weight 485 lb BMI 78.3 BP 134/82 Blood Pressure Location Rt brachial Position Sitting Pulse 83 Pulse Source Pulse Oximeter Pulse Oximetry (%) 98 Oxygen Delivery Method Room Air Intake Visit Reasons: EP dizzines, nauseous, vomiting, swollen leg Intake Note: Patient here for dizziness,vomiting, nausea that has been present for about 3-4 weeks. Patient Tobacco Use Status: Never used Tobacco Allergies No Known Allergies Allergy (Verified 06/20/24 14:36) Do you need a note to return to daycare/school/sports/work: Yes HPI HPI Comments History of Present Illness Details This is a 34-year-old male with a past medical history of hypertension, gout, anxiety, depression, morbid obesity presenting for evaluation of him spinning dizziness has been ongoing for the past 4 weeks. Patient states he was seen in the emergency department and prescribed meclizine which he is taking 3 times a day as prescribed. Patient states that he will become dizzy upon standing however not every single time. Patient states that the dizziness will make him nauseous and he will vomit shortly thereafter. Patient's last episode of vomiting was yesterday. [facility] Medical History Anxiety Depression Gout Surgical History No pertinent past surgical history Family History Father Bone cancer Mother High blood pressure Daughter No problems noted. 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[employer] Cognitive needs: No Hearing needs: No Vision needs: No Review of Systems Const All systems reviewed & are unremarkable except as noted in HPI and below Denies fatigue, Denies frequent falls and Denies headache(s) Eyes Reports as per HPI, Reports no additional complaints and Denies change in vision ENT Reports no additional complaints, Reports dizziness and Denies headache(s) Card Reports no additional complaints, Denies chest pain and Denies syncope Resp Reports as per HPI GI Reports no additional complaints, Denies diarrhea, Reports nausea and Reports vomiting Musc Reports no additional complaints Skin/Breast Reports system reviewed and no additional complaints, except as documented Neuro Reports no additional complaints, Reports dizziness, Denies syncope, Denies frequent falls and Denies headache(s) Psych Reports no additional complaints Endo Reports no additional complaints and Denies fatigue Mick/Lymph Reports no additional complaints Aller/Immun Reports no additional complaints Physical Exam Vital Signs: Last Vital Signs Pulse 83 06/20/24 14:34 BP 134/82 06/20/24 14:34 Pulse Ox 98 06/20/24 14:34 Oxygen Delivery Method Room Air 06/20/24 14:34 BMI result Body Mass Index 78.3 Patient is not orthostatic: BP seated 138/90; BP standing 130/92 Const General: cooperative, no acute distress, well developed, alert, awake and Physically active Nutritional Appearance: obese morbidly obese Orientation/consciousness: patient oriented x3 Limitations: no limitations HEENT Head: Yes normal to inspection and Yes normocephalic Ears: hearing grossly normal bilaterally, external ears normal, TM's normal bilaterally and EAC's normal General nose exam: Normal external nose present Face and sinus: Yes normal facial exam and Yes sinuses nontender Mouth: Normal oral and palatal mucosa present Throat: Yes posterior oropharynx normal Eyes General: appearance normal, both eyes and all related structures Cardio Rate: regular rate Rhythm: regular rhythm GI Palpation (GI): Soft to palpation and nontender Auscultation: normal bowel sounds Neuro General: patient oriented x3 Psych Appearance: grossly normal Mental Status: mental status grossly normal Insight: Good insight present (Psych) Judgement: Good judgement present (Psych) Assessment & Plan Assessment & Plan (1) Nausea & vomiting: Comment: Patient is evaluated. He is neurologically intact and in no acute distress. Patient states that he has been walking around his mother's parking lot twice daily for exercise becoming more conscious about food intake. Patient will be discharged home with Zofran. Code(s): R11.2 - Nausea with vomiting, unspecified Qualifiers: Vomiting type: unspecified Qualified Code(s): R11.2 - Nausea with vomiting, unspecified Plan: Zofran 4 mg q.6 to 8 hours as needed for nausea. Patient will schedule an appointment with his primary care physician for further evaluation of his symptoms. Medications: New ondansetron 4 mg PO Q8H PRN 10 tabs 0RF nausea and vomiting Coding Level of Care Code Est Pt Level 3 (26789) Diagnoses Nausea and vomiting, unspecified vomiting type R11.2 Vomiting type: unspecified Time Spent (min) 20
== END 2024-06-20 14:57 | disposition home or self-care (01) ==
PROVIDERS: PCP Nurse Practitioner Family; Visit Provider Physician Assistant
DX: R11.2 Nausea with vomiting, unspecified (principal)

== ENCOUNTER → 2024-06-20 13:16 | Outpatient (BNVA) | payer OTHER, SELFPAY | PROVIDERS: PCP Nurse Practitioner Family | DX: R11.2 Nausea with vomiting, unspecified (principal) | CPT/HCPCS: 99212 ==

== ENCOUNTER → 2024-06-29 15:50 | Outpatient (BNVA) | payer OTHER, SELFPAY | PROVIDERS: PCP Nurse Practitioner Family; Visit Provider Nurse Practitioner Family | DX: E66.01 Morbid (severe) obesity due to excess calories (principal); R60.9 Edema, unspecified | CPT/HCPCS: 96127; 99212 ==

== ENCOUNTER → 2024-06-29 15:50 | Outpatient (AMB) | payer OTHER, SELFPAY ==
[2024-06-29 15:56] VITALS: BP 132/84; PULSE 86; O2SAT 96; BMI 78.8
--- NOTE | 2024-06-29 15:56 | A.OFFPC_ITS ---
Vital Signs 06/29/24 15:56 Height 5 ft 6 in Weight 488 lb BMI 78.8 BP 132/84 Blood Pressure Location Lt brachial Position Sitting Pulse 86 Pulse Source Pulse Oximeter Pulse Oximetry (%) 96 Oxygen Delivery Method Room Air Intake Visit Reasons: medical concerns Allergies No Known Allergies Allergy (Verified 06/29/24 15:56) Medication List - Last Reconciled 06/29/24 by Pedrito Solano, [employer] SALESPERSON- allopurinol 200 mg (2 x 100 mg) PO DAILY amoxicillin-pot clavulanate 875-125 mg 1 tab PO BID 10 days cholecalciferol (vitamin D3) 50 mcg PO DAILY losartan 25 mg PO DAILY meclizine mg PO jjguevle-mrdeed-CJ-thonzonium 3.3-3-10-0.5 mg/mL (Cortisporin-TC) otic (ears) ondansetron 4 mg PO Q8H PRN vitamin A palmitate 3,000 mcg PO DAILY zinc gluconate 10 mg PO DAILY Tobacco use date assessed: 06/29/24 Dental Screening Dental Screen Date: 06/29/24 Did you have a dental visit in the last 12 months?: Yes Did you have a dental problem in the last 6 months where you did not have access to dental care?: No Was dental information given to patient?: Patient has dentist HPI medical concerns HPI Details Chief Complaint The patient presents with ongoing dizziness and a right ear infection. History of Present Illness The patient is a 34-year-old male presenting with dizziness and right ear infection. He first sought medical attention on June 14, 2024, at the emergency room due to persistent dizziness, where it was determined that he had an acute otitis media in the right ear. Initial treatment with neomycin (cortisporin drops) and meclizine was initiated. The patient reports improvement in his symptoms; however, he acknowledges that he has not fully recovered. Today's examination reveals an inflamed and erythematous right eardrum. Additionally, the patient has a history of obesity and previous engagement with bariatric services, yet he is not inclined to consider surgical interventions. Furthermore, he experiences significant bilateral lower extremity swelling and has previously used hydrochlorothiazide, which was discontinued for unknown reasons. Social History - Reports gross obesity - No history of smoking Health Maintenance Review of Systems - Cardiovascular: Denies chest pain, rep orts shortness of breath on exertion. Physical Exam General: Cooperative, healthy appearing, comfortable, no acute distress and well developed. The patient is grossly obese. Orientation: Patient oriented x3 Limitations: No limitations Head: Normal to inspection Ears: Right eardrum inflamed and erythematous. Hearing grossly normal bilaterally Nose: Normal external nose present Face and sinus: Normal facial exam Eyes: Appearance normal, both eyes and all related structures Neck: Normal visual inspection and Yes full ROM Respiratory: Normal respiratory effort and able to speak in complete sentences. Clear to auscultation bilaterally. Reports some shortness of breath on exertion. Cardiovascular: Regular rate and rhythm. Normal S1 and S2 GI: Normal to inspection. Soft to palpation and nontender Skin: No rashes or lesions noted Neuro: Patient oriented x3 Extremities: Significant swelling noted in bilateral lower extremities. Normal to inspection Results Plan - Initiate medical weight management ref erral for obesity management. - Consider initiating GLP-1 receptor ago nist therapy for weight management. - Prescribe furosemide for a couple of w eeks to address peripheral edema. - Advise obtaining laboratory investigat ions within the next week to evaluate underlying causes of symptoms. Discussion Notes I discussed with the patient the current status of his right ear infection, noting the inflammation and erythema of the eardrum. We reaffirmed the ongoing use of neomycin and meclizine, as well as the initiation of furosemide to address his bilateral peripheral edema. Weight management options were discussed extensively, with a particular focus on the potential use of GLP-1 receptor agonists for non-surgical weight loss as the patient is not interested in surgical intervention currently. A referral for medical weight management was offered. Future laboratory tests were planned to monitor his condition, and plans for follow-up were discussed. No smoking-related risks are applicable, as he is a non-smoker. Patient Instructions - Continue using cortisporin ear drops a nd meclizine as prescribed. - Begin furosemide as advised by your ph ysician. - Complete laboratory tests as planned w ithin the next week. - Follow through on medical weight manag ement referral. - Watch for improvement in symptoms; rep ort any worsening of dizziness or ear pain immediately. PFSH Medical History Anxiety Depression Gout Surgical History No pertinent past surgical history Family History Father Bone cancer Mother High blood pressure Daughter No problems noted. 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 1. Little interest or pleasure in doing things: more than half the days 2. Feeling down, depressed, or hopeless: more than half the days 3. Trouble falling or staying asleep, or sleeping too much: nearly every day 4. Feeling tired or having little energy: nearly every day 5. Poor appetite or overeating: more than half the days 6. Feeling bad about yourself - or that you are a failure or have let yourself or your family down: several days 7. Trouble concentrating on things, such as reading the newspaper or watching television: several days 8. Moving or speaking so slowly that other people could have noticed. Or the opposite - being so fidgety or restless that you have been moving around a lot more than usual: several days 9. Thoughts that you would be better off or of hurting yourself in some way: not at all Total score: 15 Depression Screening Interpretation: Positive (will have BH reach out to pt, denies any si or HI) Depression Screening Follow-up: Existing condition Depression Screening Done: Yes 28923 - PHQ-9 Billing: Yes Source: Developed by Drs. Primo Mcgraw, Earnestine Jose, Tarun Lloyd and colleagues, with an educational nilton from [employer]. Thrive Questionnaire Date Thrive assessed: 06/29/24 I am a: Patient What is your living situation today?: I have a steady place to live Within the past 12 months, did the food you bought not last and you didn't have the money to get more?: Never true Within the past 12 months, did you worry whether your food would run out before you got money to buy more?: Never true Do you have trouble paying for medicines?: No Do you have trouble getting transportation to medical appointments?: No Do you have trouble paying your heating and electricity bill?: Yes Do you have trouble taking care of your child, family member or friend?: No Do you have trouble with day-to-day activities such as bathing, preparing meals, shopping, managing finances, etc.?: No Are you currently unemployed and looking for a job?: No Are you interested in more education?: No Currently or been in a relationship where the following occur: No concerns reported THRIVE Score: 1 AUDIT C Alcohol Use Questionnaire (AUDIT-C) 1. How often do you have a drink containing alcohol?: Never 3. How often do you have six or more drinks on one occasion?: Never Total Score: 0 Score Reviewed/Action Taken: Yes ZAK-7 AMB Questionnaire ZAK-7 Date ZAK - 7 assessed: 06/29/24 Source: Developed by Drs. Primo Mcgraw, Earnestine Jose, Tarun Lloyd and colleagues, with an educational nilton from [employer]. Physical exam (Primary Care) Vital Signs: Last Vital Signs Pulse 86 06/29/24 15:56 BP 132/84 06/29/24 15:56 Pulse Ox 96 06/29/24 15:56 Oxygen Delivery Method Room Air 06/29/24 15:56 BMI result Body Mass Index 78.8 Tobacco/Smoking Status: Tobacco use Status Tobacco use date assessed 06/29/24 06/29/24 15:58 Patient Tobacco Use Status Never used Tobacco 06/29/24 15:58 e-Cigarette/Vaping Use Never Used 06/29/24 15:58 PHQ-9: PHQ-9 Score PHQ-9: Total score 15 06/29/24 15:58 Depression Screening Interpretation: Positive (will have BH reach out to pt, denies any si or HI) Depression Screening Follow-up: Existing condition Thrive Assessment: Date of Thrive Assessment Date Thrive assessed 06/29/24 06/29/24 15:58 Currently or been in a relationship where the following occur: No concerns reported Coding Level of Care Code Est Pt Level 3 (51021) Diagnoses Morbid obesity E66.01 Edema R60.9 Additional Codes PHQ-9 - 13202 - PHQ-9 Billing: Yes ([id number]) Assessment & Plan Assessment & Plan (1) Morbid obesity: Code(s): E66.01 - Morbid (severe) obesity due to excess calories Category: Medical (2) Edema: Code(s): R60.9 - Edema, unspecified Category: Medical Plan . Orders: Referrals Medical Weight Management Referral E66.01 - Morbid (severe) obesity due to excess calories Medications: New amoxicillin-pot clavulanate 875-125 mg 1 tab PO BID 10 days 20 tabs 0RF furosemide 20 mg PO DAILY 14 days 14 tabs 0RF
--- OUTSIDE RECORDS SUMMARY | 2024-06-29 16:44 | XMS_ITS | Clinical Summary ---
Author [facility] [place] [address] Care Team Providers Care Flue Lining Dipper Name Role Phone Unavailable Primary Care Provider Unavailabl e Social History Tobacco Use Types Packs/Day Years Used Date Smoking Tobacco: Never Assessed Sex and Gender Information Value Date Recorded Sex Assigned at Not on file Legal Sex Male 1:29 AM EST Gender Identity Not on file Sexual Orientation Not on file Plan of Treatment Health Maintenance Due Date Last Done Comments Hepatitis B Vaccines (1 of 3 - 19+ 3-dose series) 2010 Cholesterol Screening (Lipid Panel) 04/12/2022 Depression Screening 04/12/2022 HIV Screening 04/12/2022 Hepatitis C Screening 04/12/2022 Social Influencers of Health Screening 04/12/2022 Hypertension/CHF/CAD Annual BMP Blood Test 04/23/2022 COVID-19 Vaccine ( - 2023-2 5 season) 2024 Influenza Vaccine (#1) 2024 03/11/2020 DTaP,Tdap,and Td Vaccines (2 - Td or Tdap) 12/20/2024 12/20/2014 HIB Vaccines Aged Out No longer eligi ble based on patient's age to complete this topic HPV Vaccines Aged Out No longer eligi ble based on patient's age to complete this topic Hepatitis A Vaccines Aged Out No long er eligible based on patient's age to complete this topic IPV Vaccines Aged Out No longer eligi ble based on patient's age to complete this topic MMR Vaccines Aged Out No longer eligi ble based on patient's age to complete this topic Meningococcal ACWY Vaccine Aged Out N o longer eligible based on patient's age to complete this topic Meningococcal B Vacine Aged Out No lo nger eligible based on patient's age to complete this topic Pneumococcal Vaccine: Pediat rics (0 to 5 Years) and At-Risk Patients (6 to 64 Years) Aged Out No longer eligi ble based on patient's age to complete this topic RSV Immunization Patients Un celia 20 months Aged Out No longer eligible b ased on patient's age to complete this topic Varicella Vaccines Aged Out No longer eligible based on patient's age to complete this topic
== END ==
PROVIDERS: PCP Nurse Practitioner Family; Visit Provider Nurse Practitioner Family
DX: R60.9 Edema, unspecified (principal); E66.01 Morbid (severe) obesity due to excess calories; Z68.45 Body mass index [BMI] 70 or greater, adult

== ENCOUNTER → 2024-09-06 07:02 | Outpatient (BNVA) | payer OTHER, SELFPAY | PROVIDERS: PCP Nurse Practitioner Family; Visit Provider Nurse Practitioner Family | DX: Z13.89 Encounter for screening for other disorder (principal) ==

== ENCOUNTER 2024-10-23 14:04 | Outpatient (AMB) | payer OTHER, SELFPAY ==
--- NOTE | 2024-10-23 14:11 | MHC.PC.OV ---
Vital Signs 10/23/24 14:14 10/23/24 15:00 Height 5 ft 6 in Weight 489 lb BMI 78.9 BP 150/80 H 142/80 H Blood Pressure Location Lt radial Lt brachial Position Sitting Sitting Pulse 94 Pulse Source Pulse Oximeter Temp 98 F Temp Source Oral Pulse Oximetry (%) 96 Oxygen Delivery Method Room Air Intake Visit Reasons: ED f/u Allergies No Known Allergies Allergy (Verified 10/23/24 14:14) Medication List - Last Reconciled 10/23/24 by JONATHON ArndtP- allopurinol 200 mg (2 x 100 mg) PO DAILY amoxicillin-pot clavulanate 875-125 mg 1 tab PO BID 10 days cholecalciferol (vitamin D3) 50 mcg PO DAILY losartan 50 mg PO DAILY bdjsjjxi-bmrohb-BX-thonzonium 3.3-3-10-0.5 mg/mL (Cortisporin-TC) otic (ears) vitamin A palmitate 3,000 mcg PO DAILY zinc gluconate 10 mg PO DAILY Tobacco use date assessed: 10/23/24 Dental Screening Dental Screen Date: 10/23/24 Did you have a dental visit in the last 12 months?: No Did you have a dental problem in the last 6 months where you did not have access to dental care?: No Was dental information given to patient?: Patient has dentist HPI ED f/u HPI Details Chief Complaint The patient presents with left foot pain and swelling. History of Present Illness The patient is a 34-year-old male presenting with left foot pain and swelling. He recently visited the hospital on October 18, 2024, due to these symptoms. The pain was radiating up his leg, raising concerns for a possible blood clot, although an ultrasound ruled out deep vein thrombosis (DVT). An x-ray was performed, which showed no fracture, and plantar fasciitis was considered as a possible diagnosis. There was also a question of gout contributing to his symptoms. The patient reports improvement in swelling and currently wears compression socks. He has been advised to complete laboratory tests, including a uric acid level, to further evaluate his condition. In addition to his physical symptoms, the patient mentioned experiencing a mental breakdown a few months ago. He is currently seeing a therapist and reports doing well in managing his mental health. denies any SI or HI Social History - Mental health: Patient experienced a mental breakdown a few months ago and is currently seeing a therapist. Health Maintenance - Laboratory tests including uric acid level have been ordered for further evaluation. Review of Systems - Musculoskeletal: Reports left foot pain and swelling, radiating pain up the leg. - Cardiovascular: Denies chest pain. - Respiratory: Denies increased shortness of breath. - Neurological: Denies headaches, blurred vision. Physical Exam General: Cooperative, healthy appearing, comfortable, no acute distress and well developed, morbidly obese Orientation: Patient oriented x3 Limitations: No limitations Head: Normal to inspection Ears: Hearing grossly normal bilaterally Nose: Normal external nose present Face and sinus: Normal facial exam Eyes: Appearance normal, both eyes and all related structures Neck: Normal visual inspection and Yes full ROM Respiratory: Normal respiratory effort and able to speak in complete sentences. Clear to auscultation bilaterally Cardiovascular: Regular rate and rhythm. Normal S1 and S2 GI: Normal to inspection. Soft to palpation and nontender Skin: No rashes or lesions noted Neuro: Patient oriented x3 Extremities: Swelling reported in the left lower extremity. Left lower extremity is less swollen now (according to pt). Normal to inspection otherwise. Results - Ultrasound: Negative for deep vein thrombosis (DVT). - X-ray: No fracture detected. Plan The patient is advised to continue wearing compression socks to manage swelling in the left lower extremity. Laboratory tests, including a uric acid level, have been ordered to further investigate the possibility of gout. The patient is encouraged to monitor his blood pressure at home, with an increase in losartan dosage from 25 mg to 50 mg to better manage hypertension. The patient is also advised to maintain regular therapy sessions to support his mental health, given his history of a mental breakdown. Discussion Notes I discussed with the patient the importance of completing the laboratory tests, including the uric acid level, to evaluate the potential for gout. We also talked about the need to monitor his blood pressure at home and report the values. I advised him to continue his therapy sessions to maintain his mental health. Patient Instructions - Wear compression socks to help with swelling. - Complete the lab tests, including uric acid, as soon as possible. - Monitor your blood pressure at home and report the values via portal, increased losartan from 25mg to 50mg - Continue attending therapy sessions to support mental health. [facility] Medical History Suicide ideation Anxiety Depression Gout Surgical History No pertinent past surgical history Family History Father Bone cancer Mother High blood pressure Daughter No problems noted. 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 1. Little interest or pleasure in doing things: more than half the days 2. Feeling down, depressed, or hopeless: more than half the days 3. Trouble falling or staying asleep, or sleeping too much: nearly every day 4. Feeling tired or having little energy: nearly every day 5. Poor appetite or overeating: more than half the days 6. Feeling bad about yourself - or that you are a failure or have let yourself or your family down: several days 7. Trouble concentrating on things, such as reading the newspaper or watching television: several days 8. Moving or speaking so slowly that other people could have noticed. Or the opposite - being so fidgety or restless that you have been moving around a lot more than usual: several days 9. Thoughts that you would be better off or of hurting yourself in some way: not at all Total score: 15 Depression Screening Interpretation: Positive (denies any si or HI) Depression Screening Follow-up: Existing condition and In treatment Depression Screening Done: Yes 98967 - PHQ-9 Billing: Yes Source: Developed by Drs. Primo Mcgraw, Earnestine Jose, Tarun Lloyd and colleagues, with an educational nilton from [employer]. Thrive Questionnaire Date Thrive assessed: 10/23/24 I am a: Patient What is your living situation today?: I have a steady place to live Within the past 12 months, did the food you bought not last and you didn't have the money to get more?: Never true Within the past 12 months, did you worry whether your food would run out before you got money to buy more?: Never true Do you have trouble paying for medicines?: No Do you have trouble getting transportation to medical appointments?: No Do you have trouble paying your heating and electricity bill?: Yes Do you have trouble taking care of your child, family member or friend?: No Do you have trouble with day-to-day activities such as bathing, preparing meals, shopping, managing finances, etc.?: No Are you currently unemployed and looking for a job?: No Are you interested in more education?: No Currently or been in a relationship where the following occur: No concerns reported THRIVE Score: 1 ZAK-7 AMB Questionnaire ZAK-7 Date ZAK - 7 assessed: 06/29/24 Source: Developed by Drs. Primo Mcgraw, Earnestine Jose, Tarun Lloyd and colleagues, with an educational nilton from [employer]. Physical exam (Primary Care) Vital Signs: Last Vital Signs Temp 98 F 10/23/24 14:14 Pulse 94 10/23/24 14:14 BP 150/80 H 10/23/24 14:14 Pulse Ox 96 10/23/24 14:14 Oxygen Delivery Method Room Air 10/23/24 14:14 BMI result Body Mass Index 78.9 Tobacco/Smoking Status: Tobacco use Status Tobacco use date assessed 10/23/24 10/23/24 14:24 Patient Tobacco Use Status Never used Tobacco 10/23/24 14:13 e-Cigarette/Vaping Use Never Used 10/23/24 14:13 PHQ-9: PHQ-9 Score PHQ-9: Total score 15 10/23/24 14:24 Depression Screening Interpretation: Positive (denies any si or HI) Depression Screening Follow-up: Existing condition and In treatment Thrive Assessment: Date of Thrive Assessment Date Thrive assessed 10/23/24 10/23/24 14:24 Currently or been in a relationship where the following occur: No concerns reported Coding Level of Care Code Est Pt Level 3 (89067) Diagnoses HTN (hypertension) I10 Morbid obesity E66.01 Anxiety and depression F41.9; F32.A Gout M10.9 Additional Codes PHQ-9 - 51050 - PHQ-9 Billing: Yes ([id number]) Assessment & Plan Assessment & Plan (1) HTN (hypertension): Code(s): I10 - Essential (primary) hypertension Category: Medical (2) Morbid obesity: Code(s): E66.01 - Morbid (severe) obesity due to excess calories Category: Medical (3) Anxiety and depression: Code(s): F41.9 - Anxiety disorder, unspecified; F32.A - Depression, unspecified Category: Medical (4) Gout: Code(s): M10.9 - Gout, unspecified Category: Medical Plan . Medications: Changed From losartan 25 mg PO DAILY 90 tabs 2RF To losartan 50 mg PO DAILY 90 tabs 2RF Refilled allopurinol 200 mg (2 x 100 mg) PO DAILY 180 tabs 1RF
[2024-10-23 14:14] VITALS: BP 150/80; PULSE 94; TEMP 36.6; O2SAT 96; BMI 78.9
[2024-10-23 15:00] VITALS: BP 142/80
--- OUTSIDE RECORDS SUMMARY | 2024-10-23 15:47 | XMS_ITS | Clinical Summary ---
[facility] [place] [address] Care Team Providers Care Cst Name Role Phone Unavailable Primary Care Provider [...] Vaccine ( - 2023-2 5 season) 2024 DTaP,Tdap,and Td Vaccines (2 - Td or Tdap) 12/20/2024 12/20/2014 Influenza Vaccine (Season Ended) 2025 03/11/20 20 HIB Vaccines Aged Out No longer eligi [...] age to complete this topic Meningococcal B Vaccine Aged Out No l onger eligible based on patient's age to complete [...]
== END 2024-10-23 15:13 | disposition home or self-care (01) ==
LOC: HO.HMCC 14:05
PROVIDERS: PCP Nurse Practitioner Family; Visit Provider Nurse Practitioner Family
DX: I10 Essential (primary) hypertension (principal); E66.01 Morbid (severe) obesity due to excess calories; Z68.45 Body mass index [BMI] 70 or greater, adult; F41.9 Anxiety disorder, unspecified; F32.A Depression, unspecified; M10.9 Gout, unspecified

== ENCOUNTER → 2024-10-23 14:04 | Outpatient (BNVA) | payer OTHER, SELFPAY | PROVIDERS: PCP Nurse Practitioner Family; Visit Provider Nurse Practitioner Family | DX: M79.672 Pain in left foot (principal); M25.475 Effusion, left foot; I10 Essential (primary) hypertension; E66.01 Morbid (severe) obesity due to excess calories; F41.9 Anxiety disorder, unspecified; F32.A Depression, unspecified; M10.9 Gout, unspecified; Z68.45 Body mass index [BMI] 70 or greater, adult | CPT/HCPCS: 96127; 99212 ==

== ENCOUNTER 2024-11-08 12:54 | Outpatient (REF) | payer OTHER, SELFPAY ==
--- OUTSIDE RECORDS SUMMARY | 2024-11-08 13:23 | XMS_ITS | Clinical Summary ---
[facility] [place] [address] Care Team Providers Care Real Estate Asset Manager Name Role Phone Unavailable Primary Care Provider [...]
--- OUTSIDE RECORDS SUMMARY | 2024-11-08 13:23 | XMS_ITS | Encounter Summary ---
Author Organization [facility] Address [address] [place] [address] Care Team Providers Care Caponizer Name Role Phone Chery Jackson MD Primary Care Provider Jeremi pleitez [facility], Pcp Primary Care Provider Huey plummer Encounter Details Date Type Department Care Team Description 02/02/2015 Hospital Medical Records [address] [place] [address] Pedrito Andrew MD Social History Tobacco Use Types Packs/Day Years Used Date Smoking Tobacco: Never Alcohol Use Standard Drinks/Week Comments No 0 (1 standard drink = 0.6 oz pur e alcohol) Sex Assigned at Date Recorded Not on file documented as of this encounter Plan of Treatment Not on file documented as of this encounter Visit Diagnoses Not on filedocumented in this encounter Care Teams Caponizer Relationship Specialty Start Date End Date Chery Jackson MD PCP - General Internal Medicine 12/03/14 09/25/19 [facility], Pcp PCP - General Internal Medicine 09/26/19 documented as of this encounter
[2024-11-08 16:01] LABS: MANUAL DIFF FLAG NO
[2024-11-08 16:13] LABS: Appearance Urine Clear; Glucose Urine UA Negative (Negative); PH 6.5 (5.0-9.0); Specific Gravity - Urine 1.025 (1.005-1.025); UMIC TRIGGER UACC YES
[2024-11-08 16:14] LABS: Hematocrit 41.4 % (42.0-52.0); Hemoglobin 13.4 g/dl (14.0-18.0); Imm Gran Abs Auto 0.01 X10*3/uL (0.00-0.03); Imm Gran Pct Auto 0.1 % (0.0-0.4); Lymphocytes Absolute Auto 2.6 X10*3/uL (1.2-4.9); Mean Corpuscular HGB Conc 32.4 g/dl (31.0-36.0); Mean Corpuscular Hemoglobin 28.3 pg (27.0-33.0); Mean Corpuscular Volume 87.5 fL (80.0-98.0); NRBC Abs Auto 0.000 X10*3/uL (0.0-0.012); NRBC Pct Auto 0.0 /100WBC (0.0-0.2); Platelet Count 302 X10*3/uL (160-400); Red Blood Count 4.73 X10*6/uL (4.60-5.80); White Blood Count 7.7 X10*3/uL (4.8-10.8)
[2024-11-08 16:30] LABS: Alanine Aminotransferase 17 U/L (0-40); Albumin Level 3.7 g/dL (3.5-5.0); Alkaline Phosphatase 79 U/L (39-117); Anion Gap 11 (12-20); Aspartate Amino Transferase 32 U/L (5-37); Blood Urea Nitrogen 9 mg/dL (9-16); Calcium 8.9 mg/dL (8.4-10.2); Carbon Dioxide 30 mmol/L (22-29); Chloride 103 mmol/L (96-108); Cholesterol 149 mg/dL (<200); Estimated Glomerular Filt Rate > 60; HDL Cholesterol 21 mg/dL (>40); Potassium 3.8 mmol/L (3.3-5.1); Sodium 140 mmol/L (135-145); Total Protein 8.5 g/dL (6.5-8.0); Triglycerides 134 mg/dL (<150); Uric Acid 7.7 mg/dL (3.4-7.0)
[2024-11-09 08:27] LABS: HBS Num1 26.89 mIU/mL (0-7.99); HBc Num1 0.21 S/CO (0.00-0.79); HBsAGNum1 0.43 S/CO (0.00-0.99); HIV Num 1 0.05 S/CO (0.00-0.99); Hepatitis A Antibody IgM 0.14 Index (0-0.79); Hepatitis B Surface Antigen Negative (Negative); ~HepC Num1 0.35 S/CO (0.00-0.79); ~Hepatitis A Antibody IgM Nonreactive (Nonreactive); ~Hepatitis B Surface Antibody REACTIVE (Nonreactive); ~Hepatitis C Antibody Nonreactive (Nonreactive)
[2024-11-09 08:37] LABS: Syphilis Screen Nonreactive (Nonreactive)
[2024-11-09 14:14] LABS: CT PCR Urine NOT DETECTED (Not Detect.); NG PCR Urine NOT DETECTED (Not Detect.)
== END 2024-11-08 12:55 | disposition home or self-care (01) ==
LOC: HO.HMGCLDS 12:54
PROVIDERS: PCP Nurse Practitioner Family; Visit Provider Nurse Practitioner Family
DX: I10 Essential (primary) hypertension (principal); M10.9 Gout, unspecified; Z11.3 Encounter for screening for infections with a predominantly sexual mode of transmission; E55.9 Vitamin D deficiency, unspecified
CPT/HCPCS: 36415; 80053; 80061; 81001; 81003; 82306; 84443; 84550; 85025; 86695; 86696; 86704; 86706; 86709; 86780; 86803; 87340; 87389; 87491; 87591

== ENCOUNTER 2024-11-14 07:33 | Outpatient (AMB) | payer OTHER, SELFPAY ==
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
--- OUTSIDE RECORDS SUMMARY | 2024-11-14 07:34 | XMS_ITS | Encounter Summary ---
Author Organization [facility] Address [address] [place] [address] Care Team Providers Care Reduction Furnace Operator Helper Name Role Phone Chery Jackson MD Primary Care Provider Jeremi pleitez [facility], Pcp Primary Care Provider Huey plummer Encounter Details Date Type Department Care Team Description 02/02/2015 Hospital Medical Records [address] [place] [address] Pedrito Andrew MD Social History Tobacco Use [...] on filedocumented in this encounter Care Teams Reduction Furnace Operator Helper Relationship Specialty Start Date End Date Chery Jackson MD PCP - General Internal Medicine 12/03/14 09/25/19 [facility], Pcp PCP - General Internal Medicine 09/26/19 documented as of this encounter
--- OUTSIDE RECORDS SUMMARY | 2024-11-14 07:34 | XMS_ITS | Clinical Summary ---
[facility] [place] [address] Care Team Providers Care Architect Manager Name Role Phone Unavailable Primary Care [...] Td or Tdap) 12/20/2024 12/20/2014 Influenza Vaccine (#1) 2025 03/11/2020 HIB Vaccines Aged Out No longer eligi [...] 5 Years) and At-Risk Patients (6 to 49 Years) Aged Out No longer eligi ble based on patient's age to complete this topic RSV Immunization Patients Un celia 20 months Aged Out No longer eligible b ased on patient's age to complete this topic Varicella Vaccines Aged Out No longer eligible based on patient's age to complete this topic
== END 2024-11-14 08:40 | disposition home or self-care (01) ==
LOC: HO.HMCC 07:33
PROVIDERS: PCP Nurse Practitioner Family; Visit Provider Nurse Practitioner Family
DX: R80.9 Proteinuria, unspecified (principal); E55.9 Vitamin D deficiency, unspecified; E66.01 Morbid (severe) obesity due to excess calories; F41.9 Anxiety disorder, unspecified; F32.A Depression, unspecified; M10.9 Gout, unspecified

== ENCOUNTER 2024-12-18 10:36 | Outpatient (AMB) | payer OTHER, SELFPAY ==
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
[2024-12-18 10:41] VITALS: BP 140/98; PULSE 91; RESP 18; TEMP 36.9; O2SAT 96; BMI 76.8
[2024-12-18 11:00] VITALS: BP 150/100
--- OUTSIDE RECORDS SUMMARY | 2024-12-18 11:19 | XMS_ITS | Clinical Summary ---
Author Organization [facility] [place] [address] Care Team Providers Care Endocrinology Physician Name Role Phone Unavailable Primary Care Provider [...] series) 2010 Cholesterol Screening (Lipid Panel) 04/12/2022 HIV Screening 04/12/2022 Hepatitis C Screening 04/12/2022 Social Influencers of Health Screening 04/12/2022 Hypertension/CHF/CAD Annual BMP Blood Test 04/23/2022 COVID-19 Vaccine (1 - 2023-2 5 season) 2024 Depression Screening 05/10/2024 DTaP,Tdap,and Td Vaccines (2 - Td or [...]
[2024-12-18 11:24] VITALS: BP 144/98
== END 2024-12-18 11:34 | disposition home or self-care (01) ==
LOC: HO.HMCC 10:37
PROVIDERS: PCP Nurse Practitioner Family; Visit Provider Nurse Practitioner Family
DX: S61.412A Laceration without foreign body of left hand, initial encounter (principal); T14.8XXA Other injury of unspecified body region, initial encounter; I10 Essential (primary) hypertension

== ENCOUNTER → 2024-12-18 10:36 | Outpatient (BNVA) | payer OTHER, SELFPAY | PROVIDERS: PCP Nurse Practitioner Family; Visit Provider Nurse Practitioner Family | DX: S61.412A Laceration without foreign body of left hand, initial encounter (principal); I10 Essential (primary) hypertension; X99.1XXA Assault by knife, initial encounter; Y93.9 Activity, unspecified; Y92.9 Unspecified place or not applicable; Y99.9 Unspecified external cause status | CPT/HCPCS: 96127; 99212 ==

== ENCOUNTER 2024-12-25 06:37 | Outpatient (AMB) | payer OTHER, SELFPAY ==
--- OUTSIDE RECORDS SUMMARY | 2024-12-25 06:41 | XMS_ITS | Clinical Summary ---
Author Organization [facility] [place] [address] Care Team Providers Care Honing Machine Set Up Operator Tool Name Role Phone Unavailable Primary Care Provider [...]
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
== END 2024-12-25 09:59 | disposition home or self-care (01) ==
LOC: HO.HMCC 06:38
PROVIDERS: PCP Nurse Practitioner Family; Visit Provider Nurse Practitioner Family
DX: S61.412A Laceration without foreign body of left hand, initial encounter (principal); T14.8XXA Other injury of unspecified body region, initial encounter

== ENCOUNTER 2025-02-06 06:58 | Outpatient (AMB) | payer OTHER, SELFPAY ==
--- OUTSIDE RECORDS SUMMARY | 2025-02-06 07:01 | XMS_ITS | Clinical Summary ---
Author Organization [facility] [place] [address] Care Team Providers Care Paper Cup Machine Tender Name Role Phone Unavailable Primary Care Provider [...] 04/12/2022 Hypertension/CHF/CAD Annual BMP Blood Test 04/23/2022 Depression Screening 05/10/2024 DTaP,Tdap,and Td Vaccines (2 - Td or Tdap) 12/20/2024 12/20/2014 COVID-19 Vaccine (1 - 2023-2 5 season) 2025 Influenza Vaccine (#1) 2025 03/11/2020 HIB Vaccines [...]
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
== END 2025-02-06 07:52 | disposition home or self-care (01) ==
LOC: HO.HMCC 06:59
PROVIDERS: PCP Nurse Practitioner Family; Visit Provider Nurse Practitioner Family
DX: F32.A Depression, unspecified (principal); S61.419A Laceration without foreign body of unspecified hand, initial encounter; T14.8XXA Other injury of unspecified body region, initial encounter; E66.01 Morbid (severe) obesity due to excess calories; F43.10 Post-traumatic stress disorder, unspecified

== ENCOUNTER 2025-02-22 14:29 | Outpatient (REF) | payer OTHER, SELFPAY ==
[2025-02-22 14:44] LABS: MANUAL DIFF FLAG NO
[2025-02-22 15:05] LABS: Hematocrit 43.5 % (42.0-52.0); Hemoglobin 14.0 g/dl (14.0-18.0); Imm Gran Abs Auto 0.02 X10*3/uL (0.00-0.03); Imm Gran Pct Auto 0.2 % (0.0-0.4); Lymphocytes Absolute Auto 3.3 X10*3/uL (1.2-4.9); Mean Corpuscular HGB Conc 32.2 g/dl (31.0-36.0); Mean Corpuscular Hemoglobin 27.6 pg (27.0-33.0); Mean Corpuscular Volume 85.8 fL (80.0-98.0); NRBC Abs Auto 0.000 X10*3/uL (0.0-0.012); NRBC Pct Auto 0.0 /100WBC (0.0-0.2); Platelet Count 303 X10*3/uL (160-400); Red Blood Count 5.07 X10*6/uL (4.60-5.80); White Blood Count 9.3 X10*3/uL (4.8-10.8)
[2025-02-22 15:14] LABS: Appearance Urine Clear; Glucose Urine UA Negative (Negative); PH 6.0 (5.0-9.0); Specific Gravity - Urine 1.015 (1.005-1.025); UMIC TRIGGER UACC YES
[2025-02-22 15:58] LABS: Alanine Aminotransferase 16 U/L (0-40); Albumin Level 4.1 g/dL (3.5-5.0); Alkaline Phosphatase 97 U/L (39-117); Anion Gap 10 (12-20); Aspartate Amino Transferase 27 U/L (5-37); Blood Urea Nitrogen 8 mg/dL (9-16); Calcium 9.5 mg/dL (8.4-10.2); Carbon Dioxide 30 mmol/L (22-29); Chloride 103 mmol/L (96-108); Estimated Glomerular Filt Rate > 60; Potassium 4.4 mmol/L (3.3-5.1); Sodium 139 mmol/L (135-145); Total Protein 9.0 g/dL (6.5-8.0); Uric Acid 6.5 mg/dL (3.4-7.0)
== END 2025-02-22 14:30 | disposition home or self-care (01) ==
LOC: HO.LAB 14:29
PROVIDERS: PCP Nurse Practitioner Family; Visit Provider Nurse Practitioner Family
DX: M10.9 Gout, unspecified (principal)
CPT/HCPCS: 36415; 80053; 81001; 84550; 85025

== ENCOUNTER 2025-03-01 15:27 | Outpatient (AMB) | payer OTHER, SELFPAY ==
[2025-03-01 15:31] VITALS: BP 136/96; PULSE 80; RESP 16; O2SAT 96; BMI 76.2
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
--- OUTSIDE RECORDS SUMMARY | 2025-03-01 19:12 | XMS_ITS | Clinical Summary ---
Author Organization [facility] [place] [address] Care Team Providers Care Cook Chill Technician Name Role Phone Unavailable Primary Care Provider [...] of 3 - 19+ 3-dose series) 2010 HPV Vaccines (1 - 3-dose SCD M series) 2018 Cholesterol Screening (Lipid Panel) 04/12/2022 HIV Screening 04/12/2022 Hepatitis C Screening 04/12/2022 Social Influencers of Health Screening 04/12/2022 Hypertension/CHF/CAD Annual BMP Blood Test 04/23/2022 Depression Screening 05/10/2024 DTaP,Tdap,and Td Vaccines (2 - Td or Tdap) 12/20/2024 12/20/2014 COVID-19 Vaccine ( - 2023-2 5 season) 2025 Influenza Vaccine (#1) 2025 03/11/2020 RSV Immunization Adult Patie nts (1 - 1-dose 75+ series) 2066 HIB Vaccines Aged Out No longer eligi [...]
== END 2025-03-01 16:17 | disposition home or self-care (01) ==
LOC: HO.HMCC 15:27
PROVIDERS: PCP Nurse Practitioner Family; Visit Provider Nurse Practitioner Family
DX: I10 Essential (primary) hypertension (principal); E55.9 Vitamin D deficiency, unspecified; E66.01 Morbid (severe) obesity due to excess calories; Z68.45 Body mass index [BMI] 70 or greater, adult; T14.8XXA Other injury of unspecified body region, initial encounter; S61.41 Laceration without foreign body of hand; F43.10 Post-traumatic stress disorder, unspecified

== ENCOUNTER → 2025-03-01 15:27 | Outpatient (BNVA) | payer OTHER, SELFPAY | PROVIDERS: PCP Nurse Practitioner Family; Visit Provider Nurse Practitioner Family | DX: I10 Essential (primary) hypertension (principal); F43.10 Post-traumatic stress disorder, unspecified; E66.01 Morbid (severe) obesity due to excess calories; E55.9 Vitamin D deficiency, unspecified; F41.9 Anxiety disorder, unspecified; F32.A Depression, unspecified; S61.412D Laceration without foreign body of left hand, subsequent encounter; X99.1XXD Assault by knife, subsequent encounter; Z68.45 Body mass index [BMI] 70 or greater, adult | CPT/HCPCS: 96127; 99212 ==

== ENCOUNTER 2025-03-19 13:45 | Outpatient (REF) | payer OTHER, SELFPAY ==
--- NOTE | ~2025-03-19 | XR_ITS ---
EXAMINATION: XR FOOT, BILATERAL CLINICAL INFORMATION: M79.671 - Pain in right foot COMPARISON: None available. TECHNIQUE: AP, lateral, and oblique views both feet.. FINDINGS: No acute cortical disruption or malalignment. No lytic or blastic lesions. There is preservation of the joint spaces. No bony erosions. No subcutaneous emphysema. No radiopaque foreign body. No gross joint effusion. Patient's large body habitus. XR/XR Foot Natanael 2V IMPRESSION: No acute fracture or dislocation or gross degenerative changes. Electronically signed by: Gurdeep Gaitan MD 03/19/2025 03:16 PM JENNI VINES
--- OUTSIDE RECORDS SUMMARY | 2025-03-19 15:57 | XMS_ITS | Clinical Summary ---
[facility] [place] [address] Care Team Providers Care Organ Tuner Name Role Phone Unavailable Primary Care Provider [...]
== END 2025-03-19 13:46 | disposition home or self-care (01) ==
LOC: HO.XRAY 13:45
PROVIDERS: PCP Nurse Practitioner Family; Visit Provider Nurse Practitioner Family
DX: M79.671 Pain in right foot (principal); M79.672 Pain in left foot
CPT/HCPCS: 73620

== ENCOUNTER → 2025-03-19 14:38 | Outpatient (BNV) | payer OTHER, SELFPAY | PROVIDERS: PCP Nurse Practitioner Family; Visit Provider Radiology Diagnostic Radiology | DX: M79.671 Pain in right foot (principal) | CPT/HCPCS: 73620 ==

== ENCOUNTER 2025-03-21 11:52 | Outpatient (AMB) | payer OTHER, SELFPAY ==
[2025-03-21 11:52] VITALS: BP 118/72; PULSE 89; O2SAT 94; BMI 75.0
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
--- OUTSIDE RECORDS SUMMARY | 2025-03-21 14:44 | XMS_ITS | Clinical Summary ---
[facility] [place] [address] Care Team Providers Care Medical Records Supervisor Name Role Phone Unavailable Primary Care Provider [...] Tdap) 12/20/2024 12/20/2014 COVID-19 Vaccine ( - 2024-2 6 season) 2025 Influenza Vaccine (#1) 2025 03/11/2020 [...]
== END 2025-03-21 12:09 | disposition home or self-care (01) ==
LOC: HO.HKAS 11:52
PROVIDERS: PCP Nurse Practitioner Family; Visit Provider Internal Medicine Hypertension Specialist
DX: R80.9 Proteinuria, unspecified (principal)
CPT/HCPCS: 99204

== ENCOUNTER → 2025-03-21 11:52 | Outpatient (BNVA) | payer OTHER, SELFPAY | PROVIDERS: PCP Nurse Practitioner Family; Visit Provider Internal Medicine Hypertension Specialist | DX: I10 Essential (primary) hypertension (principal); R80.9 Proteinuria, unspecified | CPT/HCPCS: 99202 ==

== ENCOUNTER 2025-04-17 14:31 | Outpatient (REF) | payer OTHER, SELFPAY ==
[2025-04-17 16:19] LABS: Appearance Urine Clear; Glucose Urine UA Negative (Negative); PH 6.5 (5.0-9.0); Specific Gravity - Urine 1.010 (1.005-1.025)
[2025-04-17 16:53] LABS: Anion Gap 11 (12-20); Blood Urea Nitrogen 8 mg/dL (9-16); Calcium 9.5 mg/dL (8.4-10.2); Carbon Dioxide 27 mmol/L (22-29); Chloride 105 mmol/L (96-108); Estimated Glomerular Filt Rate > 60; Potassium 4.5 mmol/L (3.3-5.1); Sodium 138 mmol/L (135-145)
[2025-04-17 17:03] LABS: Total Protein Urine Random 13 mg/dL (<12)
--- OUTSIDE RECORDS SUMMARY | 2025-04-17 20:27 | XMS_ITS | Clinical Summary ---
[facility] [place] [address] Care Team Providers Care Coffee Grinder Name Role Phone Unavailable Primary Care Provider [...]
== END 2025-04-17 14:32 | disposition home or self-care (01) ==
LOC: HO.HMGCLDS 14:31
PROVIDERS: Absent Provider Nurse Practitioner Family; PCP Nurse Practitioner Family; Visit Provider Internal Medicine Hypertension Specialist
DX: I10 Essential (primary) hypertension (principal); E55.9 Vitamin D deficiency, unspecified; M10.9 Gout, unspecified; R80.9 Proteinuria, unspecified
CPT/HCPCS: 36415; 80048; 81003; 82306; 82570; 84156

== ENCOUNTER 2025-04-18 11:22 | Outpatient (AMB) | payer OTHER, SELFPAY ==
[2025-04-18 11:23] VITALS: BP 140/88; PULSE 90; O2SAT 94; BMI 73.6
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
[2025-04-18 11:35] VITALS: BP 120/82
== END 2025-04-18 11:56 | disposition home or self-care (01) ==
LOC: HO.HKAS 11:23
PROVIDERS: PCP Nurse Practitioner Family; Visit Provider Internal Medicine Hypertension Specialist
DX: R80.9 Proteinuria, unspecified (principal)
CPT/HCPCS: 99214

== ENCOUNTER → 2025-04-18 11:22 | Outpatient (BNVA) | payer OTHER, SELFPAY | PROVIDERS: PCP Nurse Practitioner Family; Visit Provider Internal Medicine Hypertension Specialist | DX: R80.9 Proteinuria, unspecified (principal) | CPT/HCPCS: 99212 ==

== ENCOUNTER 2025-04-19 13:53 | Outpatient (AMB) | payer OTHER, SELFPAY ==
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
[2025-04-19 14:00] VITALS: BP 124/82; PULSE 89; TEMP 36.8; O2SAT 98; BMI 73.4
== END 2025-04-19 14:58 | disposition home or self-care (01) ==
PROVIDERS: PCP Nurse Practitioner Family; Visit Provider Nurse Practitioner Family
DX: R07.89 Other chest pain (principal); E66.01 Morbid (severe) obesity due to excess calories; Z68.45 Body mass index [BMI] 70 or greater, adult; F41.9 Anxiety disorder, unspecified; F32.A Depression, unspecified

== ENCOUNTER → 2025-04-19 13:53 | Outpatient (BNVA) | payer OTHER, SELFPAY | PROVIDERS: PCP Nurse Practitioner Family; Visit Provider Nurse Practitioner Family | DX: R07.89 Other chest pain (principal); E66.01 Morbid (severe) obesity due to excess calories; F41.9 Anxiety disorder, unspecified; F32.A Depression, unspecified | CPT/HCPCS: 93005; 99212 ==

== ENCOUNTER 2025-05-08 14:52 | Outpatient (AMB) | payer OTHER, SELFPAY ==
[2025-05-08 14:58] VITALS: BP 126/80; PULSE 68; TEMP 37.4; O2SAT 98; BMI 73.4
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
--- OUTSIDE RECORDS SUMMARY | 2025-05-08 18:28 | XMS_ITS | Clinical Summary ---
Author Organization [facility] [place] [address] Care Team Providers Care Kiln Setter Name Role Phone Unavailable Primary Care Provider [...]
== END 2025-05-08 16:00 | disposition home or self-care (01) ==
PROVIDERS: PCP Nurse Practitioner Family; Visit Provider Physician Assistant
DX: L02.419 Cutaneous abscess of limb, unspecified (principal)

== ENCOUNTER → 2025-05-08 14:52 | Outpatient (BNVA) | payer OTHER, SELFPAY | PROVIDERS: PCP Nurse Practitioner Family; Visit Provider Physician Assistant | DX: L02.411 Cutaneous abscess of right axilla (principal) | CPT/HCPCS: 10061; 99212 ==